=== PATIENT | female | born 1950 | race Caucasian/White ===

== ENCOUNTER 2024-02-23 14:45 | Outpatient (CLI) | payer MEDICARE, SELFPAY ==
--- NOTE | ~2024-02-23 | MR_ITS ---
MRI of the left shoulder Technique: Axial proton-density fat-sat images, coronal proton density fat-sat and T2 fat-sat images, and sagittal T1-weighted and T2 fat-sat images were acquired. Clinical History: Pain Findings: There is cvsd-df-[id number] AC joint degenerative change. Small subacromial spur present. Cor acoclavicular, coracoacromial, and coracohumeral ligaments are intact. Supraspinatus and infraspinatus tendons are intact, without partial or full-thickness tear. There is mild tendinosis. Subscapularis tendon is intact, with minimal tendinosis. Tendon of the long head of the biceps is intact. No labral tear evident. There is thickening and increased signal of the inferior glenohumeral ligament. No effusion or degene rative change of the glenohumeral joint. No fluid distention of the subacromial/subdeltoid bursa. No muscle atrophy or edema. Impression: Thickening and increased signal of the inferior glenohumeral ligament suggests adhesive capsulitis. Mild rotator cuff tendinosis. Meuv-tc-iyjhewhj AC joint degenerative change. Reviewed, dictated and finalized at [facility]. Impression: Thickening and increased signal of the inferior glenohumeral ligament suggests adhesive capsulitis. Mild rotator cuff tendinosis. Bspo-sg-kxnxtiqu AC joint degenerative change.
== END 2024-02-23 14:46 ==
LOC: GOSHIMG 14:47
PROVIDERS: PCP Family Medicine; Visit Provider Family Medicine
DX: M25.812 Other specified joint disorders, left shoulder (principal); M75.32 Calcific tendinitis of left shoulder; M19.012 Primary osteoarthritis, left shoulder
CPT/HCPCS: 73221

== ENCOUNTER 2025-06-25 14:06 | Observation (INO) | payer MEDICARE, SELFPAY ==
--- OUTSIDE RECORDS SUMMARY | 2008-12-19 10:30 | XMS_ITS | Continuity of Care Document ---
Author Organization [facility] Address [address] [place] [address] [facility] [address] [place] [address] Phone Care Team Providers Care Building Operator Name Role Phone Bryan Aguilera Unavailable Unavailable Procedures Procedure Date Office/outpatient Visit, [facility] Advance Directives Directive Yes / No Effective Date File Name No Information Encounters Encounter Description Practice Location Reason(s) For Visit Diagnoses Date Provider Providers Copied on Encounter Office/outpat ient Visit, [facility], [address], [place], [place], [id number], [place] tel:[phone] [facility] No Information 4-200 9 Faisaljesika Bryan. [address] [facility] [address], [place], [address], [place]. tel:[phone] Referring Provider: Ivan Jay, [address] [facility], [place], [place], [facility]. tel:[phone] Family History Family Member Type Diagnosis Age At Onset No Information Payers Payer name Insurance type Covered republican ID Authoriza tion(s) No Information Social History Type Description Quantity Date Captured Comments Sex Female Smoking Status No Information Chief Complaint And Reason For Visit No Information Reason For Referral Reason For Referral No Information History Of Present Illness Encounter Date Complaint History Of Prese nt Illness No Information Functional Status Date Functional Assessmen t No Information Instructions Date Instruction Additional Infor mation No Information Assessments Type Assessment Date No Information Patient Care Teams Name Effective Dates (start - stop) Status Members No Information
--- OUTSIDE RECORDS SUMMARY | 2008-12-19 10:30 | XMS_ITS | Continuity of Care Document ---
Author Organization [facility] Address [address] [place] [address] [facility] [address] [place] [address] Phone Care Team Providers Care Metal Gauge Maker Name Role Phone Bryan Aguilera Unavailable Unavailable Procedures Procedure Date Office/outpatient Visit, [facility] Advance Directives Directive Yes / No Effective Date File Name No Information Encounters Encounter Description Practice Location Reason(s) For Visit Diagnoses Date Provider Providers Copied on Encounter Office/outpat ient Visit, [facility], [address], [place], [place], [id number], [place] tel:[phone] [address] [facility] No Information 4-200 9 Faisaljesika Bryan. [address] [facility] [address], [place], [address], [place]. tel:[phone] Referring Provider: Ivan Jay, [address] [facility], [place], [place], [facility]. tel:[phone] Family History Family Member Type Diagnosis Age At Onset No Information Payers Payer name Insurance type Covered libertarian ID Authoriza tion(s) No Information Social History [...]
--- OUTSIDE RECORDS SUMMARY | 2024-04-20 10:30 | XMS_ITS | Continuity of Care Document ---
Author Organization [facility] Address [address] [facility] [address] [place] [address] Phone Care Team Providers Care Model Maker Name Role Phone Ronan Hastings Unavailable Unavailable Procedures Procedure Date Therapeutic Activities Neuromuscular Re-Ed Therapeutic Exercise Hot or Cold Pack Therapeutic Activities Neuromuscular Re-Ed Therapeutic Exercise Hot or Cold Pack Therapeutic Activities Neuromuscular Re-Ed Therapeutic Exercise Hot or Cold Pack Therapeutic Activities Therapeutic Exercise Hot or Cold Pack Therapeutic Activities Neuromuscular Re-Ed Therapeutic Exercise Hot or Cold Pack Therapeutic Activities Neuromuscular Re-Ed Therapeutic Exercise Hot or Cold Pack Therapeutic Activities Neuromuscular Re-Ed Therapeutic Exercise Hot or Cold Pack Doc neg elder mal no plan PRES/ABSN URINE INCON ASSESS Identified as unhealthy alcohol user Mar Identified as unhealthy alcohol user rcv d counseling Unhealthy alcohol via screening rcvd cou nseling OT Evaluation Low Complexity Therapeutic Activities Therapeutic Exercise Hot or Cold Pack Therapeutic Activities Neuromuscular Re-Ed Therapeutic Exercise Manual Therapy Hot or Cold Pack Therapeutic Activities Neuromuscular Re-Ed Manual Therapy Hot or Cold Pack Therapeutic Activities Neuromuscular Re-Ed Manual Therapy Hot or Cold Pack Therapeutic Activities Neuromuscular Re-Ed Manual Therapy Hot or Cold Pack Therapeutic Activities Neuromuscular Re-Ed Manual Therapy Hot or Cold Pack Therapeutic Activities Neuromuscular Re-Ed Manual Therapy Hot or Cold Pack Therapeutic Activities Neuromuscular Re-Ed Therapeutic Exercise Manual Therapy Hot or Cold Pack Therapeutic Activities Neuromuscular Re-Ed Therapeutic Exercise Manual Therapy Hot or Cold Pack Doc neg elder mal no plan OT Evaluation Low Complexity Therapeutic Activities Therapeutic Exercise Hot or Cold Pack Advance Directives Directive Yes / No Effective Date File Name No Information Encounters Encounter Description Practice Location Reason(s) For Visit Diagnoses Date Provider Providers Copied on [facility], [address], [id number], tel:[phone] [place] No Information Rosendo Ferraro. . Referring Provider: Ramiro Bearden, [address] [place], [address]. tel:[phone] [facility], [address] [facility] [address], [place], [id number], [place] tel:[phone] [place] No Information 2 2 4 Rosendo Castanedayne. . Referring Provider: Ramiro Bearden, [address] [facility], [place], [address]. tel:[phone] [facility], [address] [address], [place], [place], [address], [place] tel:[phone] [place] No Information 4 Rosendo Ronan. . Referring Provider: Ramiro Bearden, [address] [facility], [place], [address]. tel:[phone] [facility], [address] [address], [place], [place], [address], [place] tel:[phone] [place] No Information 4 Rosendo Ronan. . Referring Provider: Ramiro Bearden, [address] [place], [address]. tel:[phone] [facility], [address], [id number], [place] tel:[phone] [place] No Information 0- 4 Rosendo Ronan. . Referring Provider: Ramiro Bearden, [address] [place], [address]. tel:[phone] [facility], [id number], [place] tel:[phone] [place] No Information 0 8- 4 Rosendo Ronan. . Referring Provider: Ramiro Bearden, [place], [address]. tel:[phone] [facility], [address] [facility] [address], [place], [place], [id number], [place] tel:[phone] [place] No Information 0 5- 4 Rosendo Castanedayne. . Referring Provider: Ramiroysabel Arthur Suleiman, [address] [facility], [place], [address]. tel:[phone] [facility] [address] [facility] [facility] [address], [place], [place], [id number], tel:[phone] [place] No Information 0 4 Rosendo Castanedayne. . Referring Provider: Ramiro Riverarekha Bearden, [address] [facility], [place], [address]. tel:[phone] [facility] [address] [facility] [facility] [address], [place], [place], [id number], [place] tel:[phone] [place] No Information 1 2 Rosendo Castanedayne. . Referring Provider: Veronica Almendarez [address] [place], [place] [address], [place], [address]. tel:[phone] [address], [place], [place], [address], [place] tel:[phone] [place] No Information 0 2 Rosendo Castanedayne. . Referring Provider: Jules Palomo[address] [place], [place] [address], [place], [address]. tel:[phone] [facility] [address] [place], [place] [address], [place], [place], [address], [place] tel:[phone] [place] No Information 0 2 Rosendo Castanedayne. . Referring Provider: Katt Palomo [address], [place], [address]. tel:[phone] [facility] [address] [place], [place] [address], [place], [place], [address], [place] tel:[phone] [place] No Information 2 2 Rosendo Castanedayne. . Referring Provider: Katt Palomo [address], [place], [address]. tel:[phone] [facility] [address] [facility] [address], [place], [place], [address], tel:[phone] [place] No Information 2 Rosendo Ronan. . Referring Provider: Veronica Almendarez [address], [place], [address]. tel:[phone], [place], [place], [address], tel:[phone] [place] No Information 2 Rosendo Ronan. . Referring Provider: Veronica Almendarez [address], [place], [address]. tel:[phone] [address], [place], [place], [address], tel:[phone] [place] No Information 2 Rosendo Ronan. . Referring Provider: Veronica Almendarez [address], [place], [address]. tel:[phone] [address], [place], [place], [id number], tel:[phone] [place] No Information 2 Rosendo Ronan. . Referring Provider: Veronica Almendarez [address], [place], [address]. tel:[phone] [address], [place], [place], [address], tel:[phone] [place] No Information 2 Rosendo Ronan. . Referring Provider: Veronica Almendarez [address], [place], [address]. tel:[phone] Family History Family Member Type Diagnosis Age At Onset No Information Payers Payer name Insurance type Covered alliance party ID Authoriza tion(s) Aetna Medicare Replacement CI [id number] Social History Type Description Quantity Date Captured Comments Sex Female Smoking Status No Information Chief Complaint And Reason For Visit No Information Reason For Referral Reason For Referral No Information History Of Present Illness Encounter Date Complaint History Of Prese nt Illness No Information Functional Status Date Functional Assessmen t No Information Instructions Date Instruction Additional Infor mation Prescribed activity/exercise edu cation Related to Overweight Dietary needs education Related to Overweight Assessments Type Assessment Date No Information Patient Care Teams Name Effective Dates (start - stop) Status Members No Information
--- OUTSIDE RECORDS SUMMARY | 2024-04-20 10:30 | XMS_ITS | Continuity of Care Document ---
Author Organization [facility] Address [address] [facility] [address] [place] [address] Phone Care Team Providers Care Cold Storage Superintendent Name Role Phone Ronan Hastings Unavailable Unavailable Procedures Procedure Date Therapeutic Activities Therapeutic Exercise Neuromuscular Re-Ed Hot or Cold Pack Therapeutic Activities Neuromuscular [...] nseling OT Evaluation Low Complexity Therapeutic Activities Hot or Cold Pack Therapeutic Exercise Therapeutic Activities Therapeutic Exercise Neuromuscular Re-Ed Hot or Cold Pack Manual Therapy Therapeutic Activities Hot or Cold Pack Manual Therapy Neuromuscular Re-Ed Therapeutic Activities Neuromuscular Re-Ed Manual Therapy Hot or Cold Pack Manual Therapy Neuromuscular Re-Ed Therapeutic Activities Hot or Cold Pack Therapeutic Activities Neuromuscular Re-Ed Manual Therapy Hot or Cold Pack Therapeutic Activities Hot or Cold Pack Manual Therapy Neuromuscular Re-Ed Therapeutic Activities Manual Therapy Therapeutic Exercise Neuromuscular Re-Ed Hot or Cold Pack Therapeutic Activities Neuromuscular Re-Ed Therapeutic Exercise Manual Therapy Hot or Cold Pack Doc neg elder mal no plan OT Evaluation Low Complexity Hot or Cold Pack Therapeutic Exercise Therapeutic Activities Advance Directives Directive Yes / No Effective Date File Name No Information Encounters Encounter Description Practice Location Reason(s) For Visit Diagnoses Date Provider Providers Copied on [facility]counter [facility], [address], [id number], tel:[phone] [place] No Information Rosendo Ferraro. . Referring Provider: Ramiro Bearden, [address] [place], [address]. tel:[phone] [facility], [address] [facility] [address], [place], [address], [place] tel:[phone] [place] No Information 2 2 4 Rosendo Castanedayne. . Referring Provider: Ramiro Bearden, [address] [facility], [place], [address]. tel:[phone] [facility], [address] [address], [place], [place], [address], [place] tel:[phone] [place] No Information 4 Rosendo Ronan. . Referring Provider: Ramiro Bearden, [address] [facility], [place], [address]. tel:[phone] [facility], [address] [address], [place], [place], [address], [place] tel:[phone] [place] No Information 4 Rosendo Ronan. . Referring Provider: Ramiro Bearden, [address] [place], [address]. tel:[phone] [facility], [address], [id number], [place] tel:[phone] [place] No Information 0- 4 Rosendo Ronan. . Referring Provider: Ramiro Bearden, [address] [place], [address]. tel:[phone] [facility], [id number], [place] tel:[phone] [place] No Information 0 8- 4 Rosendo Ronan. . Referring Provider: Ramiro Bearden, [facility] [place], [address]. tel:[phone] [facility], [address] [facility] [address], [place], [place], [address], [place] tel:[phone] [place] No Information 0 5- 4 Rosendo Castanedayne. . Referring Provider: Raimroysabel Arthur Suleiman, [address] [facility], [place], [address]. tel:[phone] [facility] [address] [facility] [address], [place], [place], [address], tel:[phone] [place] No Information 0 4 Rosendo Castanedayne. . Referring Provider: Ramiro Riverarekha Bearden, [address] [facility], [place], [address]. tel:[phone] [facility] [address] [facility] [address], [place], [place], [address], [place] tel:[phone] [place] No Information 1 2 Rosendo Castanedayne. . Referring Provider: Veronica Almendarez [address] [place], [place] [address], [place], [address]. tel:[phone] [address], [place], [place], [address], [place] tel:[phone] [place] No Information 0 2 Rosendo Castanedayne. . Referring Provider: Jules Palomo[address] [place], [place] [address], [place], [address]. tel:[phone] [facility] [address] [place], [place] [address], [place], [place], [address], [place] tel:[phone] [place] No Information 0 2 Rosendo Castanedayne. . Referring Provider: Katt Palomo [address], [place], [address]. tel:[phone] [facility] [address] [place], [place] [address], [place], [place], [address], [place] tel:[phone] [place] No Information 2 2 Rosendo Castanedayne. . Referring Provider: Katt Palomo [address], [place], [address]. tel:[phone] [facility] [address] [facility] [address], [place], [place], [address], tel:[phone] [place] No Information 2 Rosendo Ronan. . Referring Provider: Veronica Almendarez [address], [place], [address]. tel:[phone], [place], [place], [address], tel:[phone] [place] No Information 2 Rosendo Ronan. . Referring Provider: Veronica Almendarez [address], [place], [address]. tel:[phone] [address], [place], [place], [address], tel:[phone] [place] No Information 2 Rosendo Ronan. . Referring Provider: Veronica Almendarez [address], [place], [address]. tel:[phone], [place], [place], [address], tel:[phone] [place] No Information 2 Rosendo Ronan. . Referring Provider: Veronica Almendarez [address], [place], [address]. tel:[phone] [address], [place], [place], [address], tel:[phone] [place] No Information 2 Rosendo Ronan. . Referring Provider: Veronica Almendarez [address], [place], [address]. tel:[phone] Family History Family Member Type Diagnosis Age At Onset No Information Payers Payer name Insurance type Covered libertarian ID Authoriza tion(s) Aetna Medicare Replacement CI [id number] Social History Type Description Quantity Date Captured [...]
[2025-06-25] VITALS (10 sets, daily range): BP systolic 117–195; BP diastolic 74–102; PULSE 57–89; RESP 13–24; TEMP 36.6–36.8; O2SAT 91–98; BMI 40.6
--- NOTE | ~2025-06-25 | XR_ITS ---
EXAMINATION: XR chest 2V, 06/25/2025 14:49 CDT HISTORY: cp COMPARISON: No comparisons available. Technique: 2 views obtained. Findings: The lungs are clear, no effusion. No pneumothorax. Heart is normal size. Mediastinal and hilar contours are within normal limits. Bony thorax no acute abnormality. Impression: No acute cardiopulmonary abnormality. Reviewed, dictated and finalized at location P. Impression: No acute cardiopulmonary abnormality.
--- NOTE | ~2025-06-25 | NM_ITS ---
EXAMINATION: NM jean-paul stress w perfusion DATE: 06/26/2025 12:41 INDICATION: Chest pain TECHNIQUE: Rest images were obtained following intravenous administration of 10.0 mCi Tc99m tetrofosmin (Myoview). The patient was infused intravenously with Lexiscan (Regadenoson). Then, 32.0 mCi Tc99m tetrofosmin (Myoview) was administered intravenously, and stress images were obtained. Data was cortez nstructed into short axis and horizontal and vertical long axis SPECT images. Gated SPECT images were also obtained. COMPARISON: None. FINDINGS: There is no definite reversible or fixed perfusion abnormality to suggest ischemia or infarction. There is normal left ventricular chamber size, wall motion and ejection fraction. Left ventricular ejection fraction measures >70%. IMPRESSION: 1. Normal myocardial perfusion at rest and during stress. 2. Left ventricular ejection fraction measuring >70%. Reviewed, dictated and finalized at location A.
--- OUTSIDE RECORDS SUMMARY | 2025-06-25 14:07 | XMS_ITS | Clinical Summary ---
Author Organization [facility] Address [address] [place] [address] Care Team Providers Care Mechanical Cad Designer Name Role Phone Ramiro Arthur MD Primary Care Provider [phone] Dinesh Vargas MD Unavailable [phone] Shiv Stovall MD Unavailable [phone] Allergies No known active allergies Medications estradioL (ESTRACE) 0.01 % (0.1 mg/gram) vaginal cream Insert into the vagina nightly Active folic acid (FOLVITE) 800 mcg tablet Take by mouth Active loratadine (CLARITIN ORAL) 03/28/20 23 Active cholecalciferol, vitD3,/vit K2 (vitamin D3-vitamin K2) 125 mcg (5,000 unit)-100 mcg capsule 02/27/20 19 Active multivit with calcium,iron,min (WOMEN'S DAILY MULTIVITAMIN ORAL) 05/29/20 04 Active lisinopril-hydroCH LOROthiazide (ZESTORETIC) 20-12.5 mg per tablet TAKE 1 TABLET BY MOUTH EVERY DAY 90 tablet 3 09/02/20 24 Active escitalopram (LEXAPRO) 10 mg tablet TAKE 1 TABLET BY MOUTH EVERY DAY 90 tablet 1 10/28/19 25 Active vit C/Zn gluc/herbal no.325 (ELDERBERRY ZINC VIT C MM) Apply to mouth Activ e iron, carbonyl (FEOSOL) 45 mg tabletIndications: Iron Deficiency Anemia 0.283 tablets (45 mg total) Active ondansetron ODT (ZOFRAN-ODT) 4 mg disintegrating tabletIndications: Epigastric abdominal pain Take 1 tablet (4 mg total) by mouth every 8 (eight) hours as needed for nausea or vomiting 20 tablet 1 04/19/20 Active Additional Information Patient not taking.Reported on 05/22/[address] (PROTONIX) 40 mg EC tabletIndications: Epigastric abdominal pain Take 1 tablet (40 mg total) by mouth daily 30 tablet 3 05/22/20 Active Active Problems Problem Noted Date Diagnosed Date Mixed hyperlipidemia 02/22/2025 Encounter for Medicare annual wellness exam 07/30 Assessment & Plan (08/22/2024 8:53 AM SENIOR ACCOUNT EXECUTIVE): A(n) yearly Medicare Annual Wellness Visit has been performed today. Kiara Cintron is not up to date on screening tests. She is in need of Hepatitis B. She is not up to date on needed preventative vaccinations; She is in need of Influenza. We discussed healthy lifestyle habits, educational material has been given. Medications reviewed, changes documented as per the medical record and discussed with patient along with risks vs benefits. Specific topics reviewed: drugs, ETOH, and tobacco, importance of regular dental care, importance of regular exercise, importance of varied diet, limit TV, media violence, minimize junk food, and seat belts. Return in 6 months Hypertension, essential 10/13/2023 Overview (10/13/2023): Continuing lisinopril-hct BP is improved by our reading, but some higher readings noted at home Please get back on DASH plan Encounter for medical examination to establish c are 09/15/2023 Assessment & Plan (09/15/2023 2:48 PM SENIOR ACCOUNT EXECUTIVE): A(n) initial well visit to establish care has been performed today. Kiara Cintron is not up to date on screening tests. She is in need of DEXA, Breast cancer screening, hepatitis C screening, and Colon cancer screening- had colonoscopy last November, bone density was done a couple years ago. She is not up to date on needed preventative vaccinations; She is in need of Influenza. We discussed healthy lifestyle habits, educational material has been given. Medications reviewed, changes documented as per the medical record and discussed with patient along with risks vs benefits. Return in 1 month Class 3 severe obesity due t o excess calories without serious comorbidity with body mass index (BMI) of 40.0 to 44.9 in adult 09/15/2023 Assessment & Plan (02/15/2024 1:49 PM CDT): BMI Follow-up includes: nutrition counseling, exercise counseling, and education provided. Assessment & Plan (09/19/2023 2:37 PM SENIOR ACCOUNT EXECUTIVE): BMI Follow-up includes: nutrition counseling, exercise counseling, and education provided. Body mass index 40.0-44.9, adult ([facility]) 09/15 NURIA (obstructive sleep apnea) 12/26/2022 Seasonal allergies 12/25/2021 Vitamin D deficiency 12/25/2021 Recurrent major depressive episodes, in full rem ission 10/15/2016 IBS (irritable bowel syndrome) 02/10/2014 Depression 04/29/2011 Labile diastolic hypertension 04/29/2011 Encounters Date Type Department Care Team Description 05/31/2025 2:20 PM CDT - 05/31/2025 11:59 PM CDT Hospital Encounter [address] [address] Epigastric abdominal pain Discharge Disposition: Discharge to home or self care 05/25/2025 Results Follow-Up [facility] Primary Care at [address] [phone] Ramiro Arthur MD Thyroid Function [place], Comprehensive metabolic panel, CBC with auto differential, Additional followed-up results: 4 05/24/2025 1:40 PM CDT Lab [address] [address] Screening for thyroid disorder; Epigastric abdominal pain; Polyuria; Polydipsia; IFG (impaired fasting glucose) 05/22/2025 1:45 PM CDT Office Visit [facility] at [address] [phone] Ramiro Arthur MD Polyuria (Primary Dx); Epigastric abdominal pain; Polydipsia; Screening for thyroid disorder; IFG (impaired fasting glucose); Irritable bowel syndrome, unspecified type 05/19/2025 Telephone [facility] Primary Care at [address] [phone] Ramiro Arthur MD Appointment Request 05/19/2025 Results Follow-Up [facility] at [address] [phone] Jennifer Case NP Urine culture Urine, clean voided 05/17/2025 6:15 PM CDT Office Visit [facility] at [address] [phone] Chaya Mckeon NP Acute cystitis with hematuria (Primary Dx); Hematuria, unspecified type 05/17/2025 5:26 PM CDT - 05/17/2025 11:59 PM CDT Hospital Encounter [address] [address] Acute cystitis with hematuria Discharge Disposition: Discharge to home or self care 05/02/2025 5:30 PM CDT Office Visit [facility] at [address] [phone] Danielito Hu NP Insect bite of left forearm, initial encounter (Primary Dx); Insect bite of right lower extremity, initial encounter 04/24/2025 Results Follow-Up [facility] at [address] [phone] Ramiro Arthur MD Hepatic function panel, Amylase 04/19/2025 8:24 PM CDT - 04/19/2025 11:59 PM CDT Hospital Encounter [address] [address] Epigastric abdominal pain Discharge Disposition: Discharge to home or self care 04/19/2025 2:15 PM CDT Lab [facility] at [address] [phone] 04/19/2025 10:45 AM CDT Office Visit [facility] at [address] [phone] Ramiro Arthur MD Epigastric abdominal pain (Primary Dx) 04/14/2025 Results Follow-Up [facility] ([facility]) [address] [place] [phone] Marie Rodriguez RN Surgical pathology 04/12/2025 10:52 AM CDT - 04/12/2025 11:59 PM CDT Hospital Encounter [facility] ([facility]) [address] [place] [phone] Abnormal mammogram Discharge Disposition: Discharge to home or self care 04/12/2025 10:03 AM CDT - 04/12/2025 11:59 PM CDT Hospital Encounter [facility] ([facility]) [address] [place] [phone] Abnormal mammogram Discharge Disposition: Discharge to home or self care 04/06/2025 Results Follow-Up [facility] Primary Care at [address] [phone] Ramiro Arthur MD Breast Left Limited 03/29/2025 1:09 PM CDT - 03/29/2025 11:59 PM CDT Hospital Encounter [facility] ([facility]) [address] [place] [phone] Abnormal screening mammogram Discharge Disposition: Discharge to home or self care 03/29/2025 1:07 PM CDT - 03/29/2025 11:59 PM CDT Hospital Encounter [facility] ([facility]) [address] [place] [phone] Abnormal screening mammogram Discharge Disposition: Discharge to home or self care 03/27/2025 Orders Only [facility] Primary Care at [address] [phone] Ramiro Arthur MD from Last 3 Months Immunizations Immunization Administration Dates Next Due DTaP 12/31/2010 Influenza, Quad, Adjuvantate d, Intramuscular 07/31/2022,07/28/2021,07/12/2020 Influenza, Quadrivalent, Hig h Dose, Preservative Free, Intrr 09/15/2023,07/28/2021,08/10/2019 Influenza, Quadrivalent, Spl it, Preservative Free, Intramuscular 10/08/2016,10/01/2015 Influenza, Trivalent, Adjuva nted, Intramuscular 07/12/2020 Influenza, Trivalent, High D ose, Split, Preservative Free, Intramuscular 08/30/2024,08/10/2019 Influenza, Unspecified 09/28/2022(Deferr ed: Patient Refused),08/10/2019 Moderna SARS-CoV-2 Monovalen t Vaccination (12+ YRS) 11/30/2020,11/02/2020 Pneumococcal Conjugate PCV 13 10/08/2017 Pneumococcal Conjugate Pcv20 12/25/2021 Pneumococcal Polysaccharide PPV23 03/13/2015 Sars-cov-2 Covid-19 Mrna, Bi valent, Original/omicron Ba.1 08/30/2024 Td, Not Adsorbed 10/29/2012 ZOSTER Recombinant 12/20/2021,09/04/2021 Surgical History Surgery Date Site/Laterality Comments KNEE CARTILAGE SURGERY 09/28/2004 - 09/27/2005 Left CHOLECYSTECTOMY 09/28/2011 - 09/27/2012 BREAST BIOPSY 04/12/2025 Left Medical History Medical History Date Comments Hypertension Family History Medical History Relation Name Comments Heart disease Father Colon cancer Maternal Grandfather Heart disease Mother Breast cancer Sister Diabetes Sister Relation Name Status Comments Father Maternal Grandfather Mother Sister Social History Tobacco Use Types Packs/Day Years Used Date Smoking Tobacco: Never Smokeless Tobacco: Never Tobacco Cessation:Counseling Given: Not Answered AUDIT-C Answer Date Recorded Q1: How often do you have a drink containing alcohol? 4 or more times a week 09/15/2023 Q2: How many drinks containi ng alcohol do you have on a typical day when you are drinking? 1 or 2 Q3: How often do you have si x or more drinks on one occasion? Never 09/15/2023 PHQ-2 Answer Date Recorded PHQ-2 Total Score (If total score is 3 or more points, staff should administer the PHQ-9) 0 04/19/2025 Comments Unknown Sex and Gender Information Value Date Recorded Sex Assigned at Not on file Legal Sex Female 6:28 AM SENIOR ACCOUNT EXECUTIVE Gender Identity Not on file Sexual Orientation Not on file Obstetrics History Para Term AB IAB SAB Ectopic Multiple Livin g Live Births 3 2 2 Date Outcome GA Total Labor Labor/2nd/3rd Weight Sex Type Anes PTL Danyell A1 A5 Name Clin Term Term Last Filed Vital Signs Vital Sign Reading Time Taken Comments Blood Pressure 134/70 05/22/2025 1:45 PM CDT Pulse 69 05/22/2025 1:45 PM CDT Temperature 36.1 C (96.9 F) 05/22/2025 1:45 PM CDT Respiratory Rate 18 05/22/2025 1:45 PM CDT Oxygen Saturation 98% 05/22/2025 1:45 PM CDT Inhaled Oxygen Concentration - - Weight 107.5 kg (237 lb) 05/22/2025 1:45 PM CDT Height 160 cm (5' 3) 05/22/2025 1:45 PM CDT Body Mass Index 41.98 05/22/2025 1:45 PM CDT Plan of Treatment Health Maintenance Due Date Last Done Comments Covid-19 Vaccine ( season) 2025 08/30/2024, 04/19/2023, 07/31/2022, Additional history exists Influenza Vaccine (#1) 2025 , 09/15/2023, 07/31/2022, Additional history exists Well Visit 65+ 08/22/2025 08/22/2024, 08/17/2023 Osteoporosis Screening-Bone Density Scan 01/27/2026 01/28/2024 Breast Cancer Screening-Mammogram 03/22/2026 03/22/2025, 10/28/2023, 09/03/2022, Additional history exists Depression Screening 04/19/2026 04/19/2025, 02/22/2025, 08/22/2024, Additional history exists Fall Risk Assessment 04/19/2026 04/19/2025, 08/22/2024, 09/15/2023 DTaP/Tdap/Td Vaccine (3 - Tdap) 09/27/2026 10/29/2012, 12/31/2010 Postponed from 10/29/2022 (Insurance / Financial) Colon Cancer Screening-Colonoscopy 03/05/2032 03/05/2022 Zoster Vaccine Completed 12/20/2021, 09/04/2021 Pneumococcal vaccine 65+ Completed 022, 10/08/2017, 03/13/2015 Hepatitis C Screening Completed 09/15/2023 Hepatitis B Screening Completed 02/22/2025 Medical Devices Implanted Type Area Cutter Tender Device Identifier Shelf Expiration Date Model / Serial / Lot [employer] Ultraclip Bard 17ga 10cm 2 Trigger Permanent Ultrasound [id number] - [id number] Implanted:Qty: 1 on 04/12/2025 at [facility] [employer] [id number] / / Procedures Procedure Name Priority Date/Time Associated Diagnosis Comments CT ABDOMEN PELVIS WO CONTRAST Routine 05/31/2025 2:34 PM CDT Epigastric abdominal pain EGFR Routine 05/24/2025 1:46 PM CDT Epigastric abdominal pain Polyuria Polydipsia DIFFERENTIAL AUTO Routine 05/24/2025 1:4 6 PM CDT Epigastric abdominal pain HEMOGLOBIN A1C Routine 05/24/2025 1:46 PM CDT Polyuria Polydipsia IFG (impaired fasting glucose) CBC WITH AUTO DIFFERENTIAL Routine 05/24/2025 1:46 PM CDT Epigastric abdominal pain COMPREHENSIVE METABOLIC PANEL Routine 05/24/2025 1:46 PM CDT Epigastric abdominal pain Polyuria Polydipsia THYROID FUNCTION CASCADE Routine 05/24/2025 1:46 PM CDT Screening for thyroid disorder POCT URINALYSIS DIPSTICK Routine 05/22/2025 2:45 PM CDT Epigastric abdominal pain Polyuria Polydipsia POCT URINALYSIS DIPSTICK Routine 05/17/2025 5:26 PM CDT Acute cystitis with hematuria URINE CULTURE Routine 05/17/2025 5:26 PM CDT Acute cystitis with hematuria AMYLASE Routine 04/19/2025 12:00 PM CDT Epigastric abdominal pain HEPATIC FUNCTION PANEL Routine 04/19/2025 12:00 PM CDT Epigastric abdominal pain SRINIVAS POST CLIP PLACEMENT LEFT Schedule Routine, Read Routine (OP Routine) 04/12/2025 11:17 AM CDT Abnormal mammogram US GUIDED BREAST BIOPSY LEFT Schedule Routine, Read Routine (OP Routine) 04/12/2025 11:15 AM CDT Abnormal mammogram SURGICAL PATHOLOGY Routine 04/12/2025 10 :42 AM CDT Abnormal mammogram US BREAST LEFT LIMITED Schedule Routine, Read Routine (OP Routine) 03/29/2025 2:00 PM CDT Abnormal screening mammogram DIAGNOSTIC MAMMOGRAM LEFT W SRINIVAS Schedule Routine, Read Routine (OP Routine) 03/29/2025 1:49 PM CDT Abnormal screening mammogram SCREENING MAMMOGRAM BILATERAL W SRINIVAS Schedule Routine, Read Routine (OP Routine) 03/22/2025 9:54 AM CDT Breast cancer screening by mammogram DEXA AXIAL SKELETON BONE DENSITY 1 OR MORE SITES Schedule Routine, Read Routine (OP Routine) 01/28/2024 1:52 PM CDT Asymptomatic menopausal state Screening for osteoporosis HEPATITIS C ANTIBODY Routine 09/15/2023 1:13 PM SENIOR ACCOUNT EXECUTIVE Need for hepatitis C screening test from Last 3 Months or Most Recently Relevant to Health Maintenance Results * CT Abdomen Pelvis WO Contrast (05/31/2025 2:34 PM CDT) Anatomical Region Laterality Modality Body N/A Computed Tomogra phy 06/06/2025 2:48 PM CDT Narrative 06/06/2025 2:55 PM CDT EXAM DESCRIPTION: CT ABDOMEN PELVIS WO CONTRAST REASON FOR STUDY: chronic bloating, epigastric pain, Epigastric abdominal pain,mid abd,x 2mo TECHNIQUE: CT scan of the abdomen and pelvis performed without intravenous and without oral contrast using helical scanning technique. Reconstructed coronal and sagittal MPR images reviewed. All images stored on PACS. Automated exposure control was used as a dose optimization technique for this examination. COMPARISON: None. FINDINGS: The sensitivity for detection of visceral lesions is diminished without the use of intravenous contrast. LOWER CHEST: There is atelectasis in the right middle lobe and lingula. Minimal ground-glass density in the bases. No pleural effusion. LIVER: Liver size and contour normal. No focal hepatic lesion. GALLBLADDER: Not seen. BILE DUCTS: No biliary ductal dilation. SPLEEN: Spleen size normal. No focal splenic lesion. PANCREAS: No pancreatic mass or inflammatory change. ADRENALS: Normal KIDNEYS/URINARY TRACT: No right renal calculus. No left renal calculus. There is no hydronephrosis or hydroureter. Urinary bladder unremarkable. GI: No bowel obstruction. Minimal colonic diverticulosis. No evidence of acute diverticulitis. The terminal ileum and the appendix are normal. Stomach and duodenal are normal. There is a tiny sliding hiatal hernia. No pneumatosis. PERITONEUM: Small fat containing umbilical hernia. No ascites or free air. No mesenteric mass or lymphadenopathy. RETROPERITONEUM: No retroperitoneal mass or lymphadenopathy. REPRODUCTIVE: No significant abnormalities are seen. VASCULATURE: Abdominal aorta nonaneurysmal. MUSCULOSKELETAL: Bone windows demonstrate no acute or aggressive osseous abnormality. Vacuum disc phenomena L3-4 and L4-5 as well as L5-S1. Disc space narrowing at L3-4, L4-5 and L5-S1. OTHER: No other abnormality. IMPRESSION: 1. No evidence of an acute abnormality of the abdomen and pelvis. 2. Tiny sliding hiatal hernia. 3. Cholecystectomy. 4. Minimal colonic diverticulosis. THIS IS AN ELECTRONICALLY VERIFIED FINAL REPORT 06/06/2025 2:55 PM - Electronically signed by Constantine Lawson M.D. T: Report ID: [id number] Reading Location: [id number] Procedure Note Constantine Lawson MD - 06/06/2025 EXAM DESCRIPTION: CT ABDOMEN PELVIS WO CONTRAST REASON FOR STUDY: chronic bloating, epigastric pain, Epigastric abdominal pain,mid abd,x 2mo TECHNIQUE: CT scan of the abdomen and pelvis performed without intravenousand without oral contrast using helical scanning technique. Reconstructed coronal and sagittal MPR images reviewed. All images stored on PACS.Automated exposure control was used as a dose optimization technique for this examination. COMPARISON: None. FINDINGS: The sensitivity for detection of visceral lesions is diminished without the use of intravenous contrast. LOWER CHEST: There is atelectasis in the right middle lobe and lingula. Minimal ground-glass density in the bases. No pleural effusion. LIVER: Liver size and contour normal. No focal hepatic lesion. GALLBLADDER: Not seen. BILE DUCTS: No biliary ductal dilation. SPLEEN: Spleen size normal. No focal splenic lesion. PANCREAS: No pancreatic mass or inflammatory change. ADRENALS: Normal KIDNEYS/URINARY TRACT: No right renal calculus. No left renal calculus. There is no hydronephrosis or hydroureter. Urinary bladder unremarkable. GI: No bowel obstruction. Minimal colonic diverticulosis. No evidenceof acute diverticulitis. The terminal ileum and the appendix are normal. Stomach and duodenal are normal. There is a tiny sliding hiatal hernia.No pneumatosis. PERITONEUM: Small fat containing umbilical hernia. No ascites or freeair. No mesenteric mass or lymphadenopathy. RETROPERITONEUM: No retroperitoneal mass or lymphadenopathy. REPRODUCTIVE: No significant abnormalities are seen. VASCULATURE: Abdominal aorta nonaneurysmal. MUSCULOSKELETAL: Bone windows demonstrate no acute or aggressive osseous abnormality. Vacuum disc phenomena L3-4 and L4-5 as well as L5-S1. Disc space narrowing at L3-4, L4-5 and L5-S1. OTHER: No other abnormality. IMPRESSION: 1. No evidence of an acute abnormality of the abdomen and pelvis. 2. Tiny sliding hiatal hernia. 3. Cholecystectomy. 4. Minimal colonic diverticulosis. THIS IS AN ELECTRONICALLY VERIFIED FINAL REPORT 06/06/2025 2:55 PM - Electronically signed by Constantine Lawson M.D. T: Report ID: [id number] Reading Location: [id number] us Ramiro Arthur MD IMG CT PROCEDURES Final Res ult * eGFR (05/24/2025 1:46 PM CDT) Pathologist [facility] eGFR 70 >=60 mL/min/1. 73 m2 Comment: Interpretive Data Reference Interval Normal >/= 90 mL/min/1.73m2 Mildly decreased* 60 - 89 mL/min/1.73m2 Mildly to moderately decreased 45 - 59 mL/min/1.73m2 Moderately to severely decreased 30 - 44 mL/min/1.73m2 Severely decreased 15 - 29 mL/min/1.73m2 Kidney Failure < 15 mL/min/1.73m2 *Relative to young adult level Estimated glomerular filtration rate is determined by the 2020 CKD-EPI equation recommended by the National Kid[employer] (A Unifying Approach to GFR Estimation: Recommendations of the NKF-ASK Task Force on Reassessing the Inclusion of Race in Diagnosing Kidney Disease, JASN 2020). The CKD-EPI equation should not be used for patients with unstable renal function and has not been validated in children and those over 70. Current interpretive data was last reviewed 2021. Blood 05/24/2025 1:46 PM CDT 05/24/2025 6:29 PM CDT Ramiro Arthur MD LAB BLOOD ORDERABLES Final Result [facility] [id number] [facility] Department [place] [address] * Differential, auto (05/24/2025 1:46 PM CDT) Pathologist [facility] Neutrophil abs 4.68 1.50 - 6.50 K/cumm Imm gran abs 0.03 0.00 - 0.10 K/cumm [facility] Lymphocyte abs 2.22 0.80 - 3.30 K/cumm [facility] Monocyte abs 0.43 0.20 - 0.80 K/cumm [facility] Eosinophil abs 0.43 0.00 - 0.50 K/cumm [facility] Basophil abs 0.09 0.00 - 0.10 K/cumm [facility] Neutrophil pct 59.3 % [facility] Comment: Interpretive Data Percent cell count reference ranges are not reported, since discordance with absolute values may lead to misinterpretation of CBC data. Current Interpretive Data was last revised on 2018. Imm gran pct 0.4 % [facility] Comment: Interpretive Data Percent cell count reference ranges are not reported, since discordance with absolute values may lead to misinterpretation of CBC data. Current Interpretive Data was last revised on 2018. Lymphocyte pct 28.2 % [facility] Comment: Interpretive Data Percent cell count reference ranges are not reported, since discordance with absolute values may lead to misinterpretation of CBC data. Current Interpretive Data was last revised on 2018. Monocyte pct 5.5 % [facility] Comment: Interpretive Data Percent cell count reference ranges are not reported, since discordance with absolute values may lead to misinterpretation of CBC data. Current Interpretive Data was last revised on 2018. Eosinophil pct 5.5 % [facility] Comment: Interpretive Data Percent cell count reference ranges are not reported, since discordance with absolute values may lead to misinterpretation of CBC data. Current Interpretive Data was last revised on 2018. Basophil pct 1.1 % [facility] Comment: Interpretive Data Percent cell count reference ranges are not reported, since discordance with absolute values may lead to misinterpretation of CBC data. Current Interpretive Data was last revised on 2018. Blood 05/24/2025 1:46 PM CDT 05/24/2025 6:29 PM CDT us Ramiro Arthur MD LAB BLOOD ORDERABLES Final Result [facility] [id number] [facility] Department [place] [address] * Thyroid Function [place] (05/24/2025 1:46 PM CDT) TSH 1.53 0.30 - 4.20 mcIUnit/mL Blood 05/24/2025 1:46 PM CDT 05/24/2025 6:29 PM CDT us Ramiro Arthur MD LAB BLOOD ORDERABLES Final Result Performing Organization Address City/[facility] Co de Phone Number [facility] [address] [address] * CBC with auto differential (05/24/2025 1:46 PM CDT) WBC 7.88 3.80 - 9.90 K/cumm Hgb 13.8 11.9 - 15.5 g/dL [facility] Hct 41.3 35.6 - 45.5 % [facility] Plt 275 150 - 400 K/cumm [facility] MPV 11.1 9.1 - 12.3 fL [facility] RBC 4.65 3.90 - 5.20 M/cumm [facility] MCV 88.8 81.3 - 96.4 fL [facility] MCH 29.7 27.1 - 33.3 pg [facility] MCHC 33.4 32.3 - 35.7 g/dL [facility] RDW CV 13.2 11.1 - 14.9 % [facility] RDW SD 42.7 35.7 - 48.1 fL [facility] NRBC abs 0.00 0.00 - 0.01 K/cumm [facility] Blood 05/24/2025 1:46 PM CDT 05/24/2025 6:29 PM CDT Ramiro Arthur MD LAB BLOOD ORDERABLES Final Result Performing Organization Address [facility] Co de Phone Number [address] [address] * (ABNORMAL) Hemoglobin A1c (05/24/2025 1:46 PM CDT) Hgb A1C 6.3(H) 4.0 - 5.6 % Estimated Average Glucose 134 mg/dL [facility] Comment: The ADA recommends reporting an estimated Average Glucose (eAG) with all Hemoglobin A1c results using the equation derived from a study of 507 normal and diabetic adults. Minority populations were underrepresented and children were not included. (Diabetes Care 31:9536-2691, 2008). The eAG is not equivalent to a fasting glucose. Blood 05/24/2025 1:46 PM CDT 05/24/2025 6:29 PM CDT Ramiro Arthur MD LAB BLOOD ORDERABLES Final Result Performing Organization Address City/State/ZIP Co vt Phone Number [facility] [address] [facility] Department [place] [address] * (ABNORMAL) Comprehensive metabolic panel (05/24/2025 1:46 PM CDT) Sodium 133(L) 135 - 145 mmol/L Potassium, pl 4.0 3.3 - 4.9 mmol/L [facility] Chloride 96(L) 97 - 110 mmol/L [facility] CO2 27 22 - 32 mmol/L [facility] Anion gap 10 2 - 15 mmol/L [facility] BUN 12 6 - 25 mg/dL [facility] Creatinine 0.87 0.60 - 1.10 mg/dL [facility] Glucose 152 70 - 199 mg/dL [facility] Comment: Interpretive Data Fasting glucose >/= 126 mg/dl is diagnostic for diabetes. Fasting is defined as no caloric intake for at least 8 hours. Fasting glucose between 100 mg/dl to 125 mg/dl is diagnostic of prediabetes. In a patient with classic symptoms of hyperglycemia or hyperglycemic crisis, a random glucose >/= 200 mg/dl is diagnostic for diabetes. In the absence of unequivocal hyperglycemia, results should be confirmed by repeat testing. The classification and Diagnosis of Diabetes Diabetes Care 202; 46: S19-S40. Current interpretive data was last revised 2022. Calcium 9.4 8.5 - 10.3 mg/dL [facility] Bilirubin, total 0.2 0.1 - 1.2 mg/dL [facility] Protein, pl 6.6 6.5 - 8.5 g/dL [facility] Albumin 3.9 3.5 - 5.0 g/dL [facility] Alk phos 49 40 - 130 Units/L [facility] ALT 19 7 - 45 Units/L [facility] AST 22 10 - 45 Units/L [facility] Blood 05/24/2025 1:46 PM CDT 05/24/2025 6:29 PM CDT Result [facility] Ramiro Arthur MD LAB BLOOD ORDERABLES Final Result Performing Organization Address City/State/ZIP Co vt Phone Number [facility] [address] [facility] Department [place] [address] * (ABNORMAL) POCT urinalysis dipstick (05/22/2025 2:45 PM CDT) Glucose, ur, POC Negative Negative Bilirubin, ur, POC Negative Negative Ketones, ur, POC Negative Negative Specific Harman, POC 1.010 1.003 - 1.030 Blood, ur, POC Trace(A) Negative pH, ur, POC 6.5 5.0 - 8.0 Protein, ur, POC Negative Negative Urobilinogen, urine, POC 0.2 0.2 - 1.0 mg/dL Nitrite, ur, POC Negative Negative Leukocytes, ur, POC Negative Negative Lot Number [id number] Urine 05/22/2025 2:45 PM CDT Result [facility] Ramiro Arthur MD POINT OF CARE TEST ORDERABL ES Final Result * (ABNORMAL) POCT urinalysis dipstick (05/17/2025 5:26 PM CDT) Color, Urine, POC Yellow Clarity, ur, POC Clear Clear Glucose, ur, POC Negative Negative Bilirubin, ur, POC Negative Negative Ketones, ur, POC Negative Negative Specific Harman, POC 1.020 1.003 - 1.030 Blood, ur, POC Moderate(A) Negative pH, ur, POC 6.0 5.0 - 8.0 Protein, ur, POC Trace(A) Negative Urobilinogen, urine, POC 0.2 0.2 - 1.0 mg/dL Nitrite, ur, POC Negative Negative Leukocytes, ur, POC Negative Negative Lot Number [id number] Urine 05/17/2025 5:26 PM CDT Result [facility] Chaya Mckeon NP POINT OF CARE TEST ORDERABLES Final Result * Urine culture Urine, clean voided (05/17/2025 5:26 PM CDT) Report Final Report: Less than 100,000 colonies/mL (clinically insignificant growth based on current clinical standards) Comment:Testing performed by : [facility], [address] [place]., [address] Organism (CLINICALLY INSIGNIFICANT GROWTH [facility] Urine, clean voided 05/17/2025 5:26 PM CDT 05/18/2025 1:15 AM CDT Narrative [facility] - 05/19/2025 7:25 AM CDT Testing performed by [facility] ([phone]) us Chaya Mckeon [facility] MICROBIOLOGY - GENERAL ORD ERABLES Final Result Performing Organization Address [facility] Co de Phone Number [facility] [address] Department [place] [employer] [place] [address] * Amylase (04/19/2025 12:00 PM CDT) Pathologist [facility] Amylase 53 30 - 99 Units/L Blood 04/19/2025 12:0 0 PM CDT 04/19/2025 8:37 PM CDT Ramiro Arthur MD LAB BLOOD ORDERABLES Final Result Performing Organization Address [facility] Co de Phone Number [facility] [address] Department [place] [employer] [place] [address] * Hepatic function panel (04/19/2025 12:00 PM CDT) Bilirubin, total 0.3 0.1 - 1.2 mg/dL Bilirubin, direct 0.1 0.1 - 0.3 mg/dL [facility] Comment:Lipemia present. Res ults may be affected. Protein, pl 7.0 6.5 - 8.5 g/dL [facility] Albumin 4.0 3.5 - 5.0 g/dL [facility] Alk phos 51 40 - 130 Units/L [facility] ALT 23 7 - 45 Units/L [facility] AST 27 10 - 45 Units/L [facility] Blood 04/19/2025 12:0 0 PM CDT 04/19/2025 8:37 PM CDT us Ramiro Arthur MD LAB BLOOD ORDERABLES Final Result [facility] [id number] Department [place] [address] * Srinivas Post Clip Placement Left (04/12/2025 11:17 AM CDT) Anatomical Region Laterality Modality Breast Left Mammography 04/12/2025 12:1 2 PM CDT Addenda Addendum by Nithin Arias MD on 04/14/2025 11:31 AM CDT ADDENDUM: Pathology from biopsy of the left breast showed Breast, left, 2 o'clock, 10 cm from nipple, needle core biopsy - Cystic and papillary apocrine metaplasia - Fibrocystic changes - No atypia or malignancy present Please refer to pathology report for details. Pathology is benign and concordant. Normal interval screening mammography is recommended. Results and recommendations will be discussed with the patient by [facility] or referring provider staff and will be separately documented in the medical record. Electronically signed by: Nithin Arias MD Impressions 04/12/2025 1:50 PM CDT Successful core needle biopsy of the LEFT breast. Pathology is pending. ASSESSMENT: Post Procedure Mammograms for Marker Placement Dictated by: Rupinder Hurst MD The radiology attending physician has personally reviewed this study, and had reviewed and/or edited this written report and agrees with it. Electronically signed by: Ntihin Arias MD Narrative 04/12/2025 1:50 PM CDT EXAMINATION: LEFT BREAST CORE BIOPSY UTILIZING SONOGRAPHIC GUIDANCE, PLACEMENT OF A BIOPSY TISSUE MARKER CLIP, AND LEFT FULL FIELD DIGITAL MAMMOGRAM WITH DIGITAL BREAST TOMOSYNTHESIS HISTORY: 75-year-old woman presenting for ultrasound-guided biopsy of a mixed cystic and solid mass in the LEFT breast, 2:00, 10 cm from the nipple. COMPARISON: 03/29/2025 BREAST PARENCHYMAL COMPOSITION: There are scattered areas of fibroglandular density. PROCEDURE AND FINDINGS: The risks and potential benefits of the procedures were discussed with the patient and written informed consent was obtained. After sterile preparation of the skin, 1% lidocaine and 2% lidocaine with epinephrine were utilized for local anesthesia. A small skin incision was made with a #11 scalpel blade. A 14G vacuum-assisted biopsy needle was then advanced through the skin incision to the edge of the lesion of interest at the 2 o'clock position, 10 cm from the nipple, in the LEFT breast from a lateral approach utilizing sonographic guidance. A total of 4 tissue cores were obtained through the lesion. An UltraClip wing-shaped tissue marker clip was then placed at the biopsy site. Hemostasis was achieved. Dermabond and an ice pack were applied. There was no evidence of significant immediate complication. The patient was given verbal as well as written post procedural instructions prior to release from the department. The tissue cores were submitted to surgical pathology in formalin for histologic analysis. A two-view LEFT digital mammogram, including digital breast tomosynthesis, obtained post procedure demonstrates that the tissue marker clip is in expected position. The attending radiologist, Dr. Nithin Arias MD, was present throughout the entire procedure. Dr. Hurst (breast imaging fellow) also participated in this examination. Procedure Note Nithin Arias MD - 04/12/2025 EXAMINATION: LEFT BREAST CORE BIOPSY UTILIZING SONOGRAPHIC GUIDANCE, PLACEMENT OF A BIOPSY TISSUE MARKER CLIP, AND LEFT FULL FIELD DIGITAL MAMMOGRAM WITH DIGITAL BREAST TOMOSYNTHESIS HISTORY: 75-year-old woman presenting for ultrasound-guided biopsy of a mixed cystic and solid mass in the LEFT breast, 2:00, 10 cm from the nipple. COMPARISON: 03/29/2025 BREAST PARENCHYMAL COMPOSITION: There are scattered areas of fibroglandular density. PROCEDURE AND FINDINGS: The risks and potential benefits of the procedures were discussed with the patient and written informed consent was obtained. After sterile preparation of the skin, 1% lidocaine and 2% lidocaine with epinephrine were utilized for local anesthesia. A small skin incision was made with a #11 scalpel blade. A 14G vacuum-assisted biopsy needle was then advanced through the skin incision to the edge of the lesion of interest at the 2 o'clock position, 10 cm from the nipple, in the LEFT breast from a lateral approach utilizing sonographic guidance. A total of 4 tissue cores were obtained through the lesion. An UltraClip wing-shaped tissue marker clip was then placed at the biopsy site. Hemostasis was achieved. Dermabond and an ice pack were applied. There was no evidence of significant immediate complication. The patient was given verbal as well as written post procedural instructions prior to release from the department. The tissue cores were submitted to surgical pathology in formalin for histologic analysis. A two-view LEFT digital mammogram, including digital breast tomosynthesis, obtained post procedure demonstrates that the tissue marker clip is in expected position. The attending radiologist, Dr. Nithin Arias MD, was present throughout the entire procedure. Dr. Hurst (breast imaging fellow) also participated in this examination. IMPRESSION: Successful core needle biopsy of the LEFT breast. Pathology is pending. ASSESSMENT: Post Procedure Mammograms for Marker Placement Dictated by: Rupinder Hurst MD The radiology attending physician has personally reviewed this study, and had reviewed and/or edited this written report and agrees with it. Electronically signed by: Nithin Arias MD us Ramiro Arthur MD IMG MAMMO PROCEDURES Edited Result - Final * US Guided Breast Biopsy Left (04/12/2025 11:15 AM CDT) Anatomical Region Laterality Modality Breast Left Ultrasound 04/12/2025 12:1 2 PM CDT Addenda Addendum by Nithin Arias MD on 04/14/2025 11:31 AM CDT ADDENDUM: Pathology from biopsy of the left breast showed Breast, left, 2 o'clock, 10 cm from nipple, needle core biopsy - Cystic and papillary apocrine metaplasia - Fibrocystic changes - No atypia or malignancy present Please refer to pathology report for details. Pathology is benign and concordant. Normal interval screening mammography is recommended. Results and recommendations will be discussed with the patient by [facility] or referring provider staff and will be separately documented in the medical record. Electronically signed by: Nithin Arias MD Impressions 04/12/2025 1:50 PM CDT Successful core needle biopsy of the LEFT breast. Pathology is pending. ASSESSMENT: Post Procedure Mammograms for Marker Placement Dictated by: Rupinder Hurst MD The radiology attending physician has personally reviewed this study, and had reviewed and/or edited this written report and agrees with it. Electronically signed by: Nithin Arias MD Narrative 04/12/2025 1:50 PM CDT EXAMINATION: LEFT BREAST CORE BIOPSY UTILIZING SONOGRAPHIC GUIDANCE, PLACEMENT OF A BIOPSY TISSUE MARKER CLIP, AND LEFT FULL FIELD DIGITAL MAMMOGRAM WITH DIGITAL BREAST TOMOSYNTHESIS HISTORY: 75-year-old woman presenting for ultrasound-guided biopsy of a mixed cystic and solid mass in the LEFT breast, 2:00, 10 cm from the nipple. COMPARISON: 03/29/2025 BREAST PARENCHYMAL COMPOSITION: There are scattered areas of fibroglandular density. PROCEDURE AND FINDINGS: The risks and potential benefits of the procedures were discussed with the patient and written informed consent was obtained. After sterile preparation of the skin, 1% lidocaine and 2% lidocaine with epinephrine were utilized for local anesthesia. A small skin incision was made with a #11 scalpel blade. A 14G vacuum-assisted biopsy needle was then advanced through the skin incision to the edge of the lesion of interest at the 2 o'clock position, 10 cm from the nipple, in the LEFT breast from a lateral approach utilizing sonographic guidance. A total of 4 tissue cores were obtained through the lesion. An UltraClip wing-shaped tissue marker clip was then placed at the biopsy site. Hemostasis was achieved. Dermabond and an ice pack were applied. There was no evidence of significant immediate complication. The patient was given verbal as well as written post procedural instructions prior to release from the department. The tissue cores were submitted to surgical pathology in formalin for histologic analysis. A two-view LEFT digital mammogram, including digital breast tomosynthesis, obtained post procedure demonstrates that the tissue marker clip is in expected position. The attending radiologist, Dr. Nithin Arias MD, was present throughout the entire procedure. Dr. Hurst (breast imaging fellow) also participated in this examination. us Ramiro Arthur MD IMG MAMMO PROCEDURES Edited Result - Final * Surgical pathology (04/12/2025 10:42 AM CDT) Tissue (Breast biopsy, needle core) 04/12/2025 10:42 AM CDT Comment:LEFT ultrasound guid ed breast biopsy, 2:00 10cmfn mass, BIRADS 4A Narrative PATHOLOGY [facility] - 04/13/2025 10:50 AM CDT EPIC results best viewed via link to PDF [facility] Veronica Kumar [facility] [place] [address] [place] [address] Note to Patients: This report may contain a detailed description of human tissue sent by a health care provider to the laboratory for pathologic evaluation. The content of this report is essential for diagnosis and may provide important critical findings. This information may be unfamiliar to patients to review without a medical professional present. It is advised that the patient review this report in the presence of a health care provider who can answer questions and explain the details. SURGICAL PATHOLOGY REPORT FINAL Patient Name: KIARA CINTRON Gender: F : 1950 (Age: 75) Address: [address] [place] [address] [facility] #: [id number] Taken:04/12/2025 Received:04/12/2025 Reported: 04/13/2025 Patient Type: [facility] Ancillary Service: UNKNOWN Location: Physician(s): [facility] - Nithin Arias M.D. Diagnosis: A. Breast, left, 2 o'clock, 10 cm from nipple, needle core biopsy - Cystic and papillary apocrine metaplasia - Fibrocystic changes - No atypia or malignancy present [facility]/04/13/2025 08:13 By this signature, I attest that the above diagnosis is based upon my personal examination of the slides(and/or other material indicated in the diagnosis). Gerald Freitas MD PhD Report Electronically Reviewed and Signed Out By Gerald Freitas MD PhD 04/13/2025 10:50:36 Danielle Gray M.D. History: The patient is a 75-year-old woman presenting for abnormal mammogram. Operative procedure: Left breast biopsy, BI-RADS 4A. Specimen(s) Received: A: Left ultrasound guided breast biopsy, 2:00 10cmfn mass, birads 4a Gross Description: Received in formalin, labeled with the patient s identifiers and left breast 2 o'clock 10 cm FN BI-RADS 4A are four yellow and white cores of fibrofatty tissue (1.5-2.5 cm each in length by 0.2-0.3 cm in diameter). Labeled A1 to A2. Jar 0. Placed in formalin immediately after collection. Total fixation time= 7.0 hours. sxst/04/12/2025 14:35 PA(s): Aracely Starkey By this signature, I attest that the above diagnosis is based upon my personal examination of the slides(and/or other material). Addenda/Procedures The performance characteristics of some immunohistochemical stains, fluorescence in-situ hybridization tests and immunophenotyping by flow cytometry cited in this report (if any) were determined by the Surgical Pathology and Flow Cytometry Departments at [facility] as part of an ongoing software quality analyst program and in compliance with federally mandated regulations drawn from the Clinical Laboratory Improvement Act of 1988 (CLIA '88). Some of these tests rely on the use of analyte specific reagents and are subject to specific labeling requirements by the US Food and Drug Administration. Such diagnostic tests may only be performed in a facility that is certified by the Department of Health and Human Services as a high complexity laboratory under CLIA '88. The FDA has determined that such clearance or approval is not necessary. This test is used for clinical purposes. It should not be regarded as investigational or for research. Nevertheless, federal rules concerning the medical use of analyte specific reagents require that the following disclaimer be attached to the report: This test was developed and its performance characteristics determined by the Surgical Pathology and Flow Cytometry Departments of [facility]. It has not been cleared or approved by the U. S. Food and Drug Administration. IMAGES AND SCANNED DOCUMENTS, IF INCLUDED, ONLY VIEWABLE IN PDF VERSION OF REPORT us Ramiro Arthur MD LAB PATHOLOGY ORDERABLES Fi nal Result PATHOLOGY [facility] 3rd Floor [place], [place] [phone] * (ABNORMAL) US Breast Left Limited (03/29/2025 2:00 PM CDT) Anatomical Region Laterality Modality Breast Left Ultrasound 03/29/2025 3:22 PM CDT Impressions 03/29/2025 3:22 PM CDT 1.2 cm mixed cystic and solid mass in the LEFT breast, 2:00, 10 cm the nipple, corresponding to the screen detected mass. This is of low suspicion for malignancy. Ultrasound-guided biopsy is recommended. The method of initial detection of finding was 3D screening mammography (Sdbt). OVERALL FINAL ASSESSMENT: SUSPICIOUS. BI-RADS Category 4A: Low suspicion for malignancy. RECOMMENDATION: Ultrasound-guided biopsy of mass in the LEFT breast. Dr. Allison discussed the above findings and recommendations with the patient. She has been scheduled for biopsy on 04/12/2025 at 10:00 AM. This facility will contact the referring clinician's office for an order. Electronically signed by: Manda Allison M.D. Narrative 03/29/2025 3:22 PM CDT EXAMINATION: LEFT UNILATERAL DIGITAL DIAGNOSTIC MAMMOGRAM AND DIGITAL BREAST TOMOSYNTHESIS; LEFT BREAST SONOGRAM HISTORY: 75-year-old woman with screen detected mass and focal asymmetry in the LEFT breast. COMPARISON: Multiple prior mammograms dating back to 2019 TECHNIQUE: Full field digital mammographic views of the LEFT breast were performed, including computer aided detection (CAD) and digital breast tomosynthesis (DBT). Directed ultrasound evaluation of the LEFT breast was performed. BREAST PARENCHYMAL COMPOSITION: There are scattered areas of fibroglandular density. MAMMOGRAM FINDINGS: There is a persistent oval mass with circumscribed and obscured margins in the upper outer LEFT breast. The screen detected focal asymmetry has the appearance of overlapping fibroglandular tissue and is stable dating back to multiple prior mammograms. SONOGRAM FINDINGS: LEFT breast, 2:00, 10 cm the nipple, there is a 1.2 cm x 0.5 cm x 0.8 cm mixed cystic and solid mass, corresponding to the screen detected finding. us Ramiro Arthur MD IMG MAMMO PROCEDURES Final Result * (ABNORMAL) Diagnostic Mammogram Left W Srinivas (03/29/2025 1:49 PM CDT) Anatomical Region Laterality Modality Breast Left Mammography 03/29/2025 3:22 PM CDT Impressions 03/29/2025 3:22 PM CDT 1.2 cm mixed cystic and solid mass in the LEFT breast, 2:00, 10 cm the nipple, corresponding to the screen detected mass. This is of low suspicion for malignancy. Ultrasound-guided biopsy is recommended. The method of initial detection of finding was 3D screening mammography (Sdbt). OVERALL FINAL ASSESSMENT: SUSPICIOUS. BI-RADS Category 4A: Low suspicion for malignancy. RECOMMENDATION: Ultrasound-guided biopsy of mass in the LEFT breast. Dr. Allison discussed the above findings and recommendations with the patient. She has been scheduled for biopsy on 04/12/2025 at 10:00 AM. This facility will contact the referring clinician's office for an order. Electronically signed by: Manda Allison M.D. Narrative 03/29/2025 3:22 PM CDT EXAMINATION: LEFT UNILATERAL DIGITAL DIAGNOSTIC MAMMOGRAM AND DIGITAL BREAST TOMOSYNTHESIS; LEFT BREAST SONOGRAM HISTORY: 75-year-old woman with screen detected mass and focal asymmetry in the LEFT breast. COMPARISON: Multiple prior mammograms dating back to 2019 TECHNIQUE: Full field digital mammographic views of the LEFT breast were performed, including computer aided detection (CAD) and digital breast tomosynthesis (DBT). Directed ultrasound evaluation of the LEFT breast was performed. BREAST PARENCHYMAL COMPOSITION: There are scattered areas of fibroglandular density. MAMMOGRAM FINDINGS: There is a persistent oval mass with circumscribed and obscured margins in the upper outer LEFT breast. The screen detected focal asymmetry has the appearance of overlapping fibroglandular tissue and is stable dating back to multiple prior mammograms. SONOGRAM FINDINGS: LEFT breast, 2:00, 10 cm the nipple, there is a 1.2 cm x 0.5 cm x 0.8 cm mixed cystic and solid mass, corresponding to the screen detected finding. us Ramiro Arthur MD IMG MAMMO PROCEDURES Final Result * (ABNORMAL) SCREENING MAMMOGRAM BILATERAL W SRINIVAS (03/22/2025 9:54 AM CDT) Anatomical Region Laterality Modality Breast Bilateral Mammography Impressions 03/23/2025 12:13 PM CDT Left 1) Mass: Left breast 1 cm mass in the upper outer quadrant in the middle depth. Assessment: 0 - Incomplete. Diagnostic mammogram with possible ultrasound is recommended. 2) Focal Asymmetry: Left breast focal asymmetry at 3 o'clock in the middle depth. Assessment: 0 - Incomplete. Diagnostic mammogram with possible ultrasound is recommended. Right No evidence of malignancy. OVERALL BI-RADS FINAL ASSESSMENT: 0 - Incomplete: Needs Additional Imaging Evaluation RECOMMENDATIONS: Recommend left breast diagnostic mammogram with possible ultrasound. Narrative 03/23/2025 12:13 PM CDT EXAMINATION: SCREENING MAMMOGRAM BILATERAL W SRINIVAS: 03/22/2025 COMPARISON: Relevent prior studies available at the time of interpretation were reviewed, including the most recent mammogram on: 10/28/2023, 09/03/2022, 05/03/2021, 06/02/2019, 01/02/2017, 10/25/2015, 10/20/2014, and 08/19/2013. TECHNIQUE: Mammography was performed with 2D and digital breast tomosynthesis (DBT) images. CAD was utilized. BREAST PARENCHYMAL COMPOSITION: There are scattered areas of fibroglandular density. FINDINGS: Left 1) Mass: There is a 1 cm oval mass seen in the upper outer quadrant of the left breast in the middle depth. This finding needs additional imaging evaluation. 2) Focal Asymmetry: There is a focal asymmetry seen in the left breast at 3 o'clock in the middle to posterior depth, which may have a slightly distorted appearance on this exam which could represent a change from prior. This finding needs additional imaging evaluation. Right There is no suspicious mass, calcification, or architectural distortion. 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 IMPRESSION: Normal bone mass. REFERENCE: Bone mineral density: T-Score: Normal (T-score above or = -1.0) Low bone mass (T-score between -1.0 and -2.5) replaces the previously used term osteopenia Osteoporosis (T-score = or below -2.5) Z-Score: Within the expected range for age (Z-score above -2.0) Below the expected range for age (Z-score is -2.0 or below) Please see below follow up recommendations. Medical evaluation for secondary causes of low bone mineral density may be appropriate. FRAX is a World Health Organization validated fracture risk assessment tool that calculates a person's 10 year probability of a major osteoporosis related fracture and hip fracture. According to the National Osteoporosis Foundation guidelines, postmenopausal women and men age 50 or older with low bone mass and a 10 year probability of a major osteoporosis related fracture = or greater than 20% or a 10 year probability of a hip fracture = or greater than 3% should be considered for pharmacological treatment for the prevention of osteoporosis. For further information, including treatment recommendations, please refer to the 2019 ISCD Official Positions (http://www.iscd.org) and the NOF's Clinician's Guide to Prevention and Treatment of Osteoporosis (http://www.nof.org/professionals/clinical-guidelines) THIS IS AN ELECTRONICALLY VERIFIED FINAL REPORT 01/28/2024 11:50 PM - Electronically signed by Hever Salazar M.D. 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 IMPRESSION: Normal bone mass. REFERENCE: Bone mineral density: T-Score: Normal (T-score above or = -1.0) Low bone mass (T-score between -1.0 and -2.5) replaces thepreviously used term osteopenia Osteoporosis (T-score = or below -2.5) Z-Score: Within the expected range for age (Z-score above -2.0) Below the expected range for age (Z-score is -2.0 or below) Please see below follow up recommendations. Medical evaluation forsecondary causes of low bone mineral density may be appropriate. FRAX is a World Health Organization validated fracture risk assessmenttool that calculates a person's 10 year probability of a major osteoporosisrelated fracture and hip fracture. According to the National OsteoporosisFoundation guidelines, postmenopausal women and men age 50 or older with low bonemass and a 10 year probability of a major osteoporosis related fracture = or greater than 20% or a 10 year probability of a hip fracture = or greaterthan 3% should be considered for pharmacological treatment for the preventionof osteoporosis. For further information, including treatment recommendations, please referto the 2019 ISCD Official Positions (http://www.iscd.org) and the NOF's Clinician's Guide to Prevention and Treatment of Osteoporosis (http://www.nof.org/professionals/clinical-guidelines) THIS IS AN ELECTRONICALLY VERIFIED FINAL REPORT 01/28/2024 11:50 PM - Electronically signed by Hever Salazar M.D. MF: [email or web address] Report ID: [id number] Reading Location: [id number] Ramiro Arthur MD IMG DXA PROCEDURES Final Re sult * Hepatitis C antibody Blood (09/15/2023 1:13 PM SENIOR ACCOUNT EXECUTIVE) Hep C Ab Nonreactive Nonreactive MISAEL DESIR Comment: Interpretive Data Nonreactive: Antibodies to HCV not detected. Does NOT exclude the possibility of recent exposure to HCV. Equivocal: Equivocal for HCV antibodies. Supplemental molecular testing will be automatically performed to determine infection status in accordance with current CDC screening recommendations. Reactive: Positive for HCV antibodies. This may represent current or past HCV infection. Supplemental molecular testing will be automatically performed to determine current infection status in accordance with current CDC screening recommendations. Interpretive data was last revised on 2019. Blood 09/15/2023 1:13 PM SENIOR ACCOUNT EXECUTIVE 09/15/2023 8:41 PM SENIOR ACCOUNT EXECUTIVE Ramiro Arthur MD LAB MICROBIOLOGY - GENERAL ORDERABLES Edited Result - Final Performing Organization Address City/State/[facility] Co de Phone Number MISAEL DESIR [id number] [place] [address] from Last 3 Months or Most Recently Relevant to Health Maintenance Insurance T MEDICARE AETNA MEDICARE AETNA MEDICARE Care Teams Mechanical Cad Designer Relationship Specialty Start Date End Date Ramiro Arthur MD [address] [address] PCP - General Family Medicine 09/15/23 Dinesh Vargas MD [address] [facility] [address] [place] [address] Referring Physician Pulmonary Disease 09/15/23 Shiv Stovall MD [address] [place] [address] Referring Physician Obstetrics and Gynecology 04/12/25
--- OUTSIDE RECORDS SUMMARY | 2025-06-25 14:07 | XMS_ITS | Encounter Summary ---
Author Organization [facility] Healthcare Address [address] [place] [address] Care Team Providers Care Bagel Maker Name Role Phone Ramiro Arthur MD Primary Care Provider [phone] Dinesh Vargas MD Unavailable Shiv Stovall MD Unavailable Encounter Details Date Type Department Care Team (Late st Contact Info) Description 05/25/2025 Results Follow-Up [facility] Medical [facility] Primary Care at [address] [address] Ramiro Arthur MD [address] [place] [address] [address] [place] [address] Thyroid Function Todd, Comprehensive metabolic panel, CBC with auto differential, Additional followed-up results: 4 Social History Tobacco Use Types Packs/Day Years Used Date Smoking Tobacco: Never Smokeless Tobacco: Never AUDIT-C Answer Date Recorded Q1: How often do you have a drink containing alcohol? 4 or more times a week 09/15/2023 Q2: How many drinks containi ng alcohol do you have on a typical day when you are drinking? 1 or 2 3 Q3: How often do you have si x or more drinks on one occasion? 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 Gender Identity Not on file Sexual Orientation Not on file documented as of this encounter Plan of Treatment Not on file documented as of this encounter Visit Diagnoses Not on filedocumented in this encounter Care Teams Bagel Maker Relationship Specialty Start Date End Date Ramiro Arthur MD [address] [facility] [address] [place] [address] PCP - General Family Medicine 09/15/23 Dinesh Vargas MD [address] [facility] [address] [place] [address] Referring Physician Pulmonary Disease 09/15/23 Shiv Stovall MD [address] [place] [address] Referring Physician Obstetrics and Gynecology 04/12/25 documented as of this encounter
--- OUTSIDE RECORDS SUMMARY | 2025-06-25 14:07 | XMS_ITS | Encounter Summary ---
Author Organization [facility] Healthcare Address [address] [place] [address] Care Team Providers Care Metal Trimmer Name Role Phone Ramiro Arthur MD Primary Care Provider [phone] Dinesh Vargas MD Unavailable [phone] Shiv Stovall MD Unavailable Encounter Details Date Type Department Care Team (Late st Contact Info) Description 05/19/2025 Results Follow-Up [facility] Medical Group Convenient Care at [address] [address] Jennifer Case, FIRE PROTECTION SPECIALIST [address] [place] [address] [address] [place] [address] Urine culture Urine, clean voided Social History Tobacco Use Types Packs/Day Years [...] on file 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 Gender Identity Not on file Sexual Orientation Not on file documented as of this encounter Plan of Treatment Not on file documented as of this encounter Visit Diagnoses Not on filedocumented in this encounter Care Teams Metal Trimmer Relationship Specialty Start Date End Date Ramiro Arthur MD [address] [facility] [address] [place] [address] PCP - General Family Medicine 09/15/23 Dinesh Vargas MD [address] [facility] [address] [place] [address] Referring Physician Pulmonary Disease 09/15/23 Shiv Stovall MD [address] [place] [address] Referring Physician Obstetrics and Gynecology 04/12/25 documented as of this encounter
--- OUTSIDE RECORDS SUMMARY | 2025-06-25 14:07 | XMS_ITS | Encounter Summary ---
Author Organization [facility] Health Address [address] [facility] [place] [address] Care Team Providers Care Center Sales And Service Associate Name Role Phone Shlomo Lewis MD Unavailable Pcp, [facility] Primary Care Provider Unavailable Bia Ochoa Unavailable [phone] Regla Martinez MA Unavailable [phone] Ramiro Arthur MD Primary Care Provider Encounter Details Date Type Department Care Team (Late st Contact Info) Description 08/13/2023 Lab Requisition [facility] Physician [facility] - DermPath Lab [address] [facility], [place] [address] Nidia Rosenbaum, DO [address] [facility] [address] [place] [address] Social History Tobacco Use Types Packs/Day Years Used Date Smoking Tobacco: Former Cigarettes Smokeless Tobacco: Never Alcohol Use Standard Drinks/Week Comments Yes 6.7 (1 standard drink = 0.6 oz p ure alcohol) PHQ-2 Answer Date Recorded PHQ2 TOTAL SCORE 0 12/26/2022 Comments No Sex and Gender Information Value Date Recorded Sex Assigned at Female 12/21/2020 11:57 AM CDT Legal Sex Female 1:01 PM REAL ESTATE SALES ASSOCIATE Gender Identity Female 12/21/2020 11:57 AM CDT Sexual Orientation Straight 12/21/2020 11 :57 AM CDT 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 Author Blood Pressure < 140/90 Blood Pressure 122/88(2022 9:34 AM CDT) No Mix, Keisha P documented as of this encounter Procedures Procedure Name Priority Date/Time Associated Diagnosis Comments DERMATOPATHOLOGY Routine 08/13/2023 9:45 AM REAL ESTATE SALES ASSOCIATE documented in this encounter Results * DERMATOPATHOLOGY (08/13/2023 9:45 AM REAL ESTATE SALES ASSOCIATE) Case Report Dermatopathology Report Case: [id number] Authorizing Provider: Nidia Rosenbaum DO Collected: 08/13/2023 09:45 AM Ordering Location: [facility] DermPath Lab Received: 08/14/2023 09:38 AM Pathologist: Annika Chavez MD Specimen: Skin, right back 2:24 PM REAL ESTATE SALES ASSOCIATE DERMATOPATHOLOGY LABORATORY Final Diagnosis Specimen A. SKIN, right back: SEBORRHEIC KERATOSIS, IRRITATED AND INFLAMED (L82.0) 3 2:24 PM REAL ESTATE SALES ASSOCIATE DERMATOPATHOLOGY LABORATORY at 1424 REAL ESTATE SALES ASSOCIATE Clinical History ISK R/O NMSC 2:24 PM [facility] DERMATOPATHOLOGY LABORATORY Gross Description Specimen A: Received is one formalin filled container labeled with the patient's name and designated right back. The specimen consists of a shave biopsy measuring 5x5x1 mm. Jar 0. 2:24 PM REAL ESTATE SALES ASSOCIATE DERMATOPATHOLOGY LABORATORY Microscopic Description Specimen A. SKIN, right back: Sections show acanthosis, papillomatosis, hyperkeratosis, and squamous eddies. There is a lymphohistiocytic infiltrate within the papillary dermis. 2:24 PM REAL ESTATE SALES ASSOCIATE DERMATOPATHOLOGY LABORATORY Disclaimer An external and internal positive and negative controls are appropriate for the histochemical, immunohistochemical and immunofluorescence stain(s) in this case (if any), except where stated explicitly. The performance characteristics of the stain(s) cited in this report were developed and its performance characteristic determined by the Dermatopathology Laboratory at [facility], directed by Dr. Alvaro Bobo. These tests need not be, and therefore are not, approved by the [place] Food and Drug Administration. The tests are used for clinical purposes. Billing Codes Specimen Charges Stain Charges 00596 1 3 2:24 PM REAL ESTATE SALES ASSOCIATE DERMATOPATHOLOGY LABORATORY Embedded Images 3 2:24 PM REAL ESTATE SALES ASSOCIATE DERMATOPATHOLOGY LABORATORY Pathology/Cytolo gy TISSUE SPECIMEN FROM SKIN / Unknown 08/13/2023 9:45 AM REAL ESTATE SALES ASSOCIATE 08/14/2023 9:38 AM REAL ESTATE SALES ASSOCIATE us Nidia Rosenbaum DO LAB - PATHOLOGY/CYTOLOGY ORDERABLES Final Result DERMATOPATHOLOGY LABORATORY [facility] Department of Dermatology [address], [address] [phone] documented in this encounter Visit Diagnoses Not on filedocumented in this encounter Care Teams Center Sales And Service Associate Relationship Specialty Start Date End Date Shlomo Lewis MD [address] [place] [address] PCP - [facility] 02/26/23 10/15/24 Pcp, [facility]- PCP - General 04/24/23 08/27/23 Ramiro Arthur MD [address] [place] [address] [address] [place] [id number] PCP - General Family Medicine 08/28/23 Bia Ochoa Care Coordination Specialist Care Management 02/10/24 02/10/24 Regla Martinez MA [address] [place] [id number] Care Coordination Specialist Care Management 10/10/24 10/10/24 documented as of this encounter
--- OUTSIDE RECORDS SUMMARY | 2025-06-25 14:07 | XMS_ITS | Encounter Summary ---
Author Organization [facility] Healthcare Address [address] [place] [address] Care Team Providers Care Unit Control Clerk Name Role Phone Ramiro Arthur MD Primary Care Provider [phone] Dinesh Vargas MD Unavailable Shiv Stovall MD Unavailable [phone] Encounter Details Date Type Department Care Team (Late st Contact Info) Description 04/24/2025 Results Follow-Up [facility] Medical Group Primary Care at [address] [address] Ramiro Arthur MD [address] [place] [address] [address] [place] [address] Hepatic function panel, Amylase Social History Tobacco Use Types Packs/Day Years [...] on file 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 [address] [place] [address] PCP - General Family Medicine 09/15/23 Dinesh Vargas MD [address] [facility] [address] [place] [address] Referring Physician Pulmonary Disease 09/15/23 Shiv Stovall MD [address] [place] [address] Referring Physician Obstetrics and Gynecology 04/12/25 documented as of this encounter
--- NOTE | 2025-06-25 14:09 | ECG_ITS ---
Test Date: 2025-06-25 14:16:02 Measurements Intervals [place] Rate: 96 P: 50 GA: 176 QRS: -41 QRSD: 94 T: 30 QT: 352 QTc: 447 Interpretive Statements SINUS RHYTHM WITH FREQUENT VENTRICULAR PREMATURE COMPLEXES INFERIOR MYOCARDIAL INFARCTION , PROBABLY OLD Electronically Signed On 06-25-2025 20:51:05 CDT by Hao Esposito D.O
[2025-06-25] MEDS: ASPIRIN 81 MG CHEWABLE TABLET 324 MG PO (14:38)
--- NOTE | 2025-06-25 14:39 | ED.CHESTPAIN ---
HPI - Chest Pain General Chief Complaint: Chest Pain Stated Complaint: heart problems Time Seen by Provider: 06/25/25 14:15 History of Present Illness HPI narrative: Patient is a 75-year-old female who presents the ER with chest pain. She reports she has been having exertional shortness of breath for the last couple of months. Worse with walking from room to room. No wheezing. No cough for fever. No real chest pain when she this was occurring. Today she developed chest tightness and shortness of breath while at rest and with exertion and it never went away. That lasted for several hours. No occurred right after having lunch. On the drive here pain the began to nhan but then came back while she was in the hallway coming up to the ER. She has not chest tightness this time. No history of coronary disease but has a mother and father who both had MIs. Related Data Home Medications ?Medication ?Instructions ?Recorded ?Confirmed ?Last Taken ?Type cetirizine 10 mg capsule (Zyrtec) 10 mg PO DAILY PRN 03/20/22 04/04/25 Unknown History cholecalciferol (vitamin D3) 25 25 mcg PO DAILY 03/20/22 04/04/25 Unknown History mcg (1,000 unit) capsule escitalopram oxalate 10 mg tablet 10 mg PO DAILY 03/20/22 04/04/25 Unknown History folic acid 800 mcg tablet 0.8 mg PO DAILY 03/20/22 04/04/25 Unknown History lisinopril 10 mg tablet 10 mg PO DAILY 03/20/22 04/04/25 Unknown History multivitamin 1 tablet PO DAILY 03/20/22 04/04/25 Unknown History ezetimibe 10 mg tablet 10 mg PO DAILY 04/04/25 04/04/25 Unknown History ferrous sulfate 137 mg (45 mg 137 mg PO DAILY 04/04/25 04/04/25 Unknown History iron) tablet,extended release omega 5-uag-kix-fish oil 1,200 mg cap PO 04/04/25 04/04/25 Unknown History (144 mg-216 mg) capsule (Fish Oil) Allergies Allergy/AdvReac Type Severity Reaction Status Date / Time No Known Allergies Allergy Mild Verified 04/04/25 09:26 Review of Systems Review of Systems: All systems reviewed & are unremarkable except as noted in HPI and below Constitutional: Constitutional: Reports no additional constitutional complaints ENT: Reports system reviewed and no additional complaints, except as documented Cardiovascular: Cardiovascular: Reports no additional cardiovascular complaints Respiratory: Respiratory: Reports no additional respiratory complaints Gastrointestinal: Gastrointestinal: Reports no additional gastrointestinal complaints [facility] Past Medical History Medical History (Updated 06/25/25 @ 16:48 by Kuldip Hyatt MD) Hyperlipidemia Screening mammogram, encounter for Encounter for special screening examination for neoplasm of cervix Hypertension Depression Surgical History Surgical History History of knee surgery (~2006) rt knee surgery History of cholecystectomy (~2012) Family History Family History Father Hypertension Diabetes mellitus Heart disease Mother Hypertension Family history of chronic obstructive pulmonary disease Heart disease Sibling Family history of malignant neoplasm of breast in first degree relative sister Diabetes mellitus sister Hypertension sister Social History Social History (Updated 04/04/25 @ 09:38 by IMELDA Bob) Smoking status: Former smoker Second hand tobacco smoke exposure: Yes (as child) Alcohol intake: current Drinks per week: 7 Substance use: never Substance use type: does not use Do You Feel Safe in your Home?: Yes Lack of Transportation: No Lack of Food: Never True Current Housing: I Have Housing Concerned About Future Housing: No Difficulty Paying Gas/Electric Bills: No Difficulty Paying for Meds: No Currently Unemployed: No Education: Master's Degree or Higher Difficulty w/ Childcare or Family Care: No Living arrangements: other Additional living arrangements comments: Occupation/Education: retired Gender identity (if verbalized by the patient): Female Sexual Orientation (if Verbalized by the Patient): Straight or Heterosexual Exam Narrative: GENERAL: Well-appearing, well-nourished, and in no acute distress. HEAD: Normocephalic, atraumatic. ENT: Mucous membranes moist. CHEST: Clear to auscultation. No respiratory distress. HEART: Regular rate and rhythm. Normal peripheral pulses. ABDOMEN: Soft, nontender, nondistended. EXTREMITIES: Normal range of motion. No edema. SKIN: Warm, dry, no rash. NEURO: Alert and oriented x3. PSYCH: Normal mood and affect. Course Course Emergency Course: Patient resting comfortably. No chest pain at this time. Blood pressures improved without treatment. Troponin negative x1. Will admit for observation and stress testing. Vital Signs Vital signs: Vital Signs Temperature 97.9 F 06/25/25 14:06 Pulse Rate 57 L 06/25/25 14:06 Respiratory Rate 16 06/25/25 14:06 Blood Pressure 195/102 H 06/25/25 14:06 Pulse Oximetry 98 06/25/25 14:06 Temperature 97.9 F 06/25/25 14:06 Pulse Rate 57 L 06/25/25 14:06 Respiratory Rate 16 06/25/25 14:06 Blood Pressure 195/102 H 06/25/25 14:06 Pulse Oximetry 97 06/25/25 14:21 Oxygen Delivery Room Air 06/25/25 14:21 MDM - Chest Pain Lab Data 06/25/25 14:40 06/25/25 14:40 Labs: Lab Results 06/25/25 Range/Units 14:40 WBC 9.5 (4.5-10.0) K/mm3 RBC 4.95 (4.2-5.4) M/mm3 Hgb 14.6 (12.0-15.0) g/dL Hct 42.8 (37.0-47.0) % MCV 86.5 (80-100) fl MCH 29.5 (26-34) pg MCHC 34.1 (32-36) g/dl RDW 13.0 (11.5-14.5) % Plt Count 257 (150-375) k/mm3 MPV 10.7 H (7.4-10.4) fl Immature Gran % (Auto) 0.3 (0-0.5) % Neut % (Auto) 68.1 (45.5-73.1) % Lymph % (Auto) 21.6 (18.3-44.2) % [place] % (Auto) 5.0 (2.6-8.5) % Eos % (Auto) 4.2 (0-4.4) % Baso % (Auto) 0.8 (0.2-1.2) % Lymph # (Auto) 2.04 (0.9-3.2) K/mm3 [place] # (Auto) 0.5 (0.1-0.6) K/mm3 Eos # (Auto) 0.4 H (0-0.3) K/mm3 Baso # (Auto) 0.1 (0.0-0.1) K/mm3 Abs Immat Gran (auto) 0.03 (0.00-0.031) K/mm3 Absolute Neuts (auto) 6.4 (1.3-6.7) K/mm3 Absolute Nucleated RBC 0.000 (0.0-0.012) K/mm3 Nucleated RBC % 0.0 (0.0-0.2) % PT 13.0 (11.1-14.7) Seconds INR 1.0 APTT 29.0 (22.3-36.8) Seconds Sodium 127 L (137-145) mmol/L Potassium 4.0 (3.4-5.0) mmol/L Chloride 94 L (98-107) mmol/L Carbon Dioxide 25 (22-30) mmol/L Anion Gap 8 (4-12) mmol/L BUN 11 (7-17) mg/dL Creatinine 0.85 (0.7-1.0) mg/dL Estim Creat Clear Calc 60 ml/min Estimated GFR > 60 (59 - ) Glucose 178 H (65-110) mg/dL Calcium 8.9 (8.4-10.2) mg/dL Total Bilirubin 0.6 (0.2-1.3) mg/dL AST 36 (14-36) U/L ALT 25 (6-35) U/L Alkaline Phosphatase 50 (38-126) U/L Troponin I < 0.012 (0.000-0.034) ng/mL Total Protein 7.3 (6.3-8.2) g/dL Albumin 4.1 (3.5-5.1) g/dL Lipase 74 (23-300) U/L Imaging Data Radiologist's impression: ITS Impressions Chest X-Ray 06/25/25 14:55 Impression: No acute cardiopulmonary abnormality. ECG Data EKG #1: ECG completion date: 06/25/25 ECG completion time: 14:16 EKG Interpretation: normal rate (96), sinus rhythm, PVCs, non-specific ST changes and normal QRS Discharge Plan Discharge Clinical Impression: Chest pain Patient Disposition: Still a Patient Condition: Stable Patient Language: [place] Prescriptions: No Action multivitamin Tablet 1 tablet PO DAILY lisinopril 10 mg tablet 10 mg PO DAILY folic acid 800 mcg tablet 0.8 mg PO DAILY cholecalciferol (vitamin D3) 25 mcg (1,000 unit) capsule 25 mcg PO DAILY escitalopram oxalate 10 mg tablet 10 mg PO DAILY Zyrtec 10 mg capsule 10 mg PO DAILY PRN ezetimibe 10 mg tablet 10 mg PO DAILY omega 1-jxq-esi-fish oil [Fish Oil] 1,200 (144-216) mg capsule PO ferrous sulfate 137 mg (45 mg iron) tablet extended release 137 mg PO DAILY estradiol [Estrace] 0.01 % (0.1 mg/gram) cream 1 g vaginal 3XW Qty: 42.5 2RF Follow-up/Referrals: Sandhya,Ramiro Bearden MD [Primary Care Provider, Unknown] Quality HEART score for chest pain patients History: moderately suspicious ECG: non specific repolarization disturbance/LBTB/PM Age: > or = to 65 years Risk factors: 1 or 2 risk factors Troponin: < or = to 1x normal limit Heart score: 5
[2025-06-25 14:50] LABS: Hematocrit 42.8 % (37.0-47.0); Hemoglobin 14.6 g/dL (12.0-15.0); Immature Granulocyte Percent A 0.3 % (0-0.5); Lymphocytes Absolute Auto 2.04 K/mm3 (0.9-3.2); Mean Corpuscular HGB Conc 34.1 g/dl (32-36); Mean Corpuscular Hemoglobin 29.5 pg (26-34); Mean Corpuscular Volume 86.5 fl (80-100); Nucleated Red Blood Cells Absolute Auto 0.000 K/mm3 (0.0-0.012); Nucleated Red Blood Cells Perc 0.0 % (0.0-0.2); Platelet Count Result 257 k/mm3 (150-375); Red Blood Count 4.95 M/mm3 (4.2-5.4); White Blood Count 9.5 K/mm3 (4.5-10.0)
[2025-06-25 14:59] LABS: INR 1.0; Prothrombin Time 13.0 Seconds (11.1-14.7)
[2025-06-25 15:00] LABS: Partial Thromboplastin Time 29.0 Seconds (22.3-36.8)
[2025-06-25 15:05] LABS: Alanine Aminotransferase 25 U/L (6-35); Albumin Level 4.1 g/dL (3.5-5.1); Alkaline Phosphatase 50 U/L (38-126); Anion Gap 8 mmol/L (4-12); Aspartate Amino Transferase 36 U/L (14-36); Bilirubin,Total 0.6 mg/dL (0.2-1.3); Blood Urea Nitrogen 11 mg/dL (7-17); Calcium 8.9 mg/dL (8.4-10.2); Carbon Dioxide 25 mmol/L (22-30); Chloride 94 mmol/L (98-107); Estimated CRCL calculation 60 ml/min; Estimated Glomerular Filt Rate > 60; Glucose 178 mg/dL (65-110); Lipase 74 U/L (23-300); Potassium 4.0 mmol/L (3.4-5.0); Sodium 127 mmol/L (137-145); Total Protein 7.3 g/dL (6.3-8.2)
[2025-06-25 15:24] LABS: Troponin I < 0.012 ng/mL (0.000-0.034)
--- NOTE | 2025-06-25 17:03 | ECG_ITS ---
Test Date: 2025-06-25 17:07:38 Measurements Intervals [place] Rate: 65 P: 4 NC: 141 QRS: -47 QRSD: 92 T: 11 QT: 394 QTc: 412 Interpretive Statements SINUS RHYTHM LEFTWARD AXIS POSSIBLE ANTERIOR MYOCARDIAL INFARCTION , PROBABLY OLD Electronically Signed On 06-25-2025 20:51:41 CDT by Hao Esposito D.O
--- NOTE | 2025-06-25 17:26 | ADMGEN ---
This patient, Kiara Garcia, was admitted to IMU Room 205-02. Patient/family oriented to hospital policies and general routines including ID bracelet, bed and alarms, visiting hours, pain management, procedures, bathroom and other care routines, personal items, smoking policy, room service/diet, and visiting hours. Information on how to activate the Rapid Response Team has been discussed. Patient/Family are encouraged to report perceived risks to care and to ask questions if they do not understand what they are told or what they should do.
--- NOTE | 2025-06-25 17:43 | PM.IMHP ---
H&P: HPI History of Present Illness Date/Time: 06/25/25 17:43 Chief Complaint: Chest Pain Narrative: 75 y/o F with PMH of hypertension, hyperlipidemia, and depression presents here with chest pain. The patient presents here from home on 06/25 for further evaluation of chest pain, chest tightness, and palpitations. She reports she has been experiencing exertional shortness of breath for the past 2-2.5 months that worsens with ambulation (short as just room to room). Shortness of breath has been progressively worsening but would be alleviated with rest or reclining. She denied accompanying wheezing, cough, fever, chest pain, weight gain, lower extremity edema, or chills. However, the shortness of breath occurred while at rest today and was accompanied by chest tightness/discomfort and tingling in her bilateral upper extremities. She reports the event lasted for several hours which prompted her to seek care in the emergency department. While driving to the ER she reports the pain started to resolve but then intensified after arrival. She described the chest tightness as dull, accompanied by palpitations, midsternal, nonradiating, constant, aggravated by exertion, and no alleviating factors. She reports she is no longer having chest tightness/pain but is still having shortness of breath at rest/conversational. She denies any personal history of coronary artery disease, however she has a familial history (mother and father both had myocardial infarctions). Last had a stress test around 8 years ago with no abnormalities. Initial VS at presentation: 97.9? F, HR 57, R 16, 195/102, and 98% on RA. BP now 138/75 without interventions. ED workup showed: No leukocytosis, no anemia, normal coags, sodium 127, creatinine 0.85 and GFR >60, glucose 178, initial troponin was negative. CXR showed no acute cardiopulmonary abnormality. Initial EKG showed sinus rhythm with frequent PVCs, possible anterior NE probably old, inferior NE probably old. Review of Systems Review of Systems: All systems reviewed & are unremarkable except as noted in HPI and below [facility] Past Medical History Medical History (Updated 06/25/25 @ 19:03 by Yolande Jackson, HERMANN) Hyperlipidemia Screening mammogram, encounter for Encounter for special screening examination for neoplasm of cervix Hypertension Depression Surgical History Surgical History History of knee surgery (~2006) rt knee surgery History of cholecystectomy (~2012) Family History Family History Father Hypertension Diabetes mellitus Heart disease Mother Hypertension Family history of chronic obstructive pulmonary disease Heart disease Sibling Family history of malignant neoplasm of breast in first degree relative sister Diabetes mellitus sister Hypertension sister Social History Social History Smoking status: Never smoker Second hand tobacco smoke exposure: Yes (as child) Alcohol intake: never Drinks per week: 7 Substance use: never Substance use type: does not use Do You Feel Safe in your Home?: Yes Lack of Transportation: No Lack of Food: Never True Current Housing: I Have Housing Concerned About Future Housing: No Difficulty Paying Gas/Electric Bills: No Difficulty Paying for Meds: No Currently Unemployed: No Education: Master's Degree or Higher Difficulty w/ Childcare or Family Care: No Living arrangements: other Additional living arrangements comments: Occupation/Education: retired Gender identity (if verbalized by the patient): Female Sexual Orientation (if Verbalized by the Patient): Straight or Heterosexual Spiritual care concerns: No Meds Home Medications and Allergies Home Medications ?Medication ?Instructions ?Recorded ?Confirmed ?Type cholecalciferol (vitamin D3) 25 25 mcg PO DAILY 03/20/22 06/25/25 History mcg (1,000 unit) capsule escitalopram oxalate 10 mg tablet 10 mg PO DAILY 03/20/22 06/25/25 History folic acid 800 mcg tablet 0.8 mg PO DAILY 03/20/22 06/25/25 History multivitamin 1 tablet PO DAILY 03/20/22 06/25/25 History estradiol 0.01% (0.1 mg/gram) 1 g vaginal 3XW #42.5 grams 02/28/25 06/25/25 Rx vaginal cream (Estrace) lisinopril 20 1 tablet PO DAILY 06/25/25 06/25/25 History mg-hydrochlorothiazide 12.5 mg tablet Allergies Allergy/AdvReac Type Severity Reaction Status Date / Time No Known Allergies Allergy Mild Verified 04/04/25 09:26 Vital Signs Vital Signs - 24 hr 06/25/25 14:06 06/25/25 14:21 06/25/25 15:04 Temperature 97.9 F Pulse Rate 57 L 81 Respiratory Rate 16 20 Blood Pressure 195/102 H Pulse Oximetry 98 97 92 Oxygen Delivery Room Air 06/25/25 15:15 06/25/25 15:31 06/25/25 15:32 Temperature Pulse Rate 86 82 89 Respiratory Rate 24 H 17 20 Blood Pressure 138/75 Pulse Oximetry 93 91 96 Oxygen Delivery 06/25/25 17:08 Temperature Pulse Rate 69 Respiratory Rate 13 Blood Pressure Pulse Oximetry 98 Oxygen Delivery Exam Const: General: comfortable and no acute distress Other: , female, elderly, nontoxic appearance HENMT: Face/Nose/Sinus: Normal nares present Mouth: Yes moist mucous membranes Eyes: General: appearance normal, both eyes and all related structures Sclera: sclerae normal Pupils: Equal, round and reactive pupils present EOM: EOMs intact bilaterally Resp: Effort & Inspection: normal respiratory effort Auscultation: clear to auscultation bilaterally Cardio: Rate: regular rate Rhythm: regular rhythm Other: S1-S2 present without murmur, rub, ectopy GI: Other: Abdomen soft, nondistended, nontender. Normoactive bowel sounds in all quadrants. Skin: General skin exam: normal color and no rashes or lesions noted Wounds: no wounds Neuro: Speech: normal speech Motor exam (neuro): 5/5 motor strength present throughout Sensory Exam: normal sensation Other: A&O x4 Extrem: General: normal to inspection Psych: Mental Status: mental status grossly normal Affect: normal affect Other: Good insight and judgment, very pleasant H&P: Results Labs Labs: Short CBC 06/25/25 Range/Units 14:40 WBC 9.5 (4.5-10.0) K/mm3 Hgb 14.6 (12.0-15.0) g/dL Hct 42.8 (37.0-47.0) % Plt Count 257 (150-375) k/mm3 BMP 06/25/25 14:40 Sodium 127 L Potassium 4.0 Chloride 94 L Carbon Dioxide 25 BUN 11 Creatinine 0.85 Glucose 178 H Calcium 8.9 Cardiac Enzymes 06/25/25 Range/Units 14:40 Troponin I < 0.012 (0.000-0.034) ng/mL Liver Function 06/25/25 Range/Units 14:40 Total Bilirubin 0.6 (0.2-1.3) mg/dL AST 36 (14-36) U/L ALT 25 (6-35) U/L Alkaline Phosphatase 50 (38-126) U/L Albumin 4.1 (3.5-5.1) g/dL Assessment and Plan Assessment and plan (1) Chest pain: Qualifiers: Chest pain type: unspecified Qualified Code(s): R07.9 - Chest pain, unspecified Code(s): R07.9 - Chest pain, unspecified Status: Acute Assessment and Plan: Patient has been experiencing exertional shortness of breath for the past 2 months without weight gain or peripheral edema. Shortness of breath would be alleviated with rest or reclining. However now shortness of breath occurred at rest and was accompanied by chest tightness and bilateral upper extremity tingling. Troponins have thus far been negative and no concerning changes on EKG. - EKG, initial: Sinus rhythm with frequent PVCs, possible anterior NE probably old, inferior NE probably old. >> per my personal review no significant ST depressions or elevations. - EKG, repeat (1): When compared to EKG done earlier same day, left axis deviation now present, PVCs no longer present, mi findings present. >> per my personal review no significant ST elevations or depressions. - CXR: No acute cardiopulmonary abnormalities - Troponin: <0.012 x2, 6 hour ordered - ASA 324 given in the ED, continue as 81 daily - SL nitro PRN - cardiology consulted, awaiting recs - started on heparin gtt - check lipid panel and BNP - no previous stress test or cardiac cath on file per chart review >> stress test ordered, NPO at midnight - telemetry monitoring (2) Hyperlipidemia: Qualifiers: Hyperlipidemia type: unspecified Qualified Code(s): E78.5 - Hyperlipidemia, unspecified Code(s): E78.5 - Hyperlipidemia, unspecified Status: Chronic Assessment and Plan: - history of hyperlipidemia, not currently on a statin - checking lipid panel (3) Hypertension: Qualifiers: Hypertension type: primary hypertension Qualified Code(s): I10 - Essential (primary) hypertension Code(s): I10 - Essential (primary) hypertension Status: Chronic Assessment and Plan: - chronic, currently 146/94, stable - continue home medications: Lisinopril-hydrochlorothiazide - monitor Plan Glucose noted to be elevated upon admission at 178. Checking A1C, states she was recently told she is prediabetic but has no history of diabetes. Diet: Heart healthy, NPO midnight GI Prophylaxis: N/a DVT Prophylaxis: Lovenox IV fluids: None Lines/Tubes: Peripheral IV Code Status: Full code Quality VTE Prophylaxis VTE prophylaxis: pharmacologic ordered Hospitalist MIPS Advance Care Plan I have confirmed that the patient's Advanced Care Plan is present, code status is documented, or surrogate decision maker is listed in patient medical record.: Yes Medication Reconciliation I have utilized all available resources to obtain, update and review the patients current medications (includes all prescriptions, OTC, herbals, cannabis, and nutritional supplements).: Yes
[2025-06-25 17:54] LABS: Troponin I < 0.012 ng/mL (0.000-0.034)
--- NOTE | 2025-06-25 19:38 | ECG_ITS ---
Test Date: 2025-06-25 19:50:05 Measurements Intervals [place] Rate: 68 P: 49 CT: 191 QRS: -37 QRSD: 93 T: 12 QT: 404 QTc: 430 Interpretive Statements SINUS RHYTHM PATTERN CONSISTENT WITH PULMONARY DISEASE INFERIOR MYOCARDIAL INFARCTION, PROBABLY OLD Electronically Signed On 06-25-2025 20:53:20 CDT by Hao Esposito D.O
[2025-06-25 19:58] LABS: Cholesterol 215 mg/dL (0-200); HDL Direct 42 mg/dL; Triglycerides 148 mg/dL (<150)
[2025-06-25 20:08] LABS: NT Pro B Type Natriuretic Pept 169 pg/mL (19.9-100); Troponin I < 0.012 ng/mL (0.000-0.034)
[2025-06-26] VITALS (15 sets, daily range): BP systolic 105–147; BP diastolic 52–77; PULSE 61–85; RESP 14–20; TEMP 36.4–36.8; O2SAT 94–95
--- NOTE | 2025-06-26 | ECHO_ITS ---
Patient Info Name: Kiara Garcia Age: 75 years : 1950 Gender: Female Ht: 63 in Wt: 228 lbs BSA: 2.20 m2 HR: 71 bpm BP: 145 / 77 mmHg Heart Rhythm: Sinus Rhythm Technical Quality: Fair Exam Date: 06/26/2025 3:42 PM Patient Status: I Admit Date: 06/25/2025 Exam Type: CA echo dop color flow w con Complete two-dimensional, color flow and Doppler transthoracic echocardiogram is performed with contrast to opacify the left ventricle and to improve the deliniation of the left ventricle endocardial borders. Staff Referring Physician: Kuldip Hyatt MD Truck Driver Instructor: Deanna Delatorre Attending Provider: Han Dolan Contrast/Agitated Saline Contrast/Ag. Saline: Definity Amount: 2.00 ml Administered By: Deanna Delatorre Existing IV Access: Yes IV Access Condition: patent with no signs of infiltration Summary 1. Left ventricular systolic function is hyperdynamic, estimated at >70. 2. The left ventricular diastolic function is grade I diastolic dysfunction. 3. There is mild aortic valve calcification. 4. There is mild tricuspid valve regurgitation. 5. Mild pulmonary hypertension, estimated pulmonary arterial systolic pressure is 43 mmHg. Left Ventricle Left ventricular chamber dimension is normal. Left ventricular systolic function is hyperdynamic, estimated at >70. There is no increased left ventricular wall thickness. Left ventricular septal wall motion is normal. The left ventricular diastolic function is grade I diastolic dysfunction. Right Ventricle Right ventricular chamber dimension is normal. Right ventricular systolic function is normal. Left Atria Left atrial chamber dimension is normal. Right Atria Right atrial chamber dimension is normal. Aortic Valve The aortic valve is trileaflet. There is no aortic valve sclerosis. There is no aortic valve stenosis. There is no aortic valve regurgitation. There is mild aortic valve calcification. Pulmonic Valve The pulmonic valve is normal. There is no pulmonic valve stenosis. There is no pulmonic regurgitation. Mitral Valve The mitral valve has normal leaflets. There is no mitral valve stenosis. There is no mitral valve regurgitation. Tricuspid Valve The tricuspid valve leaflets are normal. There is no significant tricuspid valve stenosis. There is mild tricuspid valve regurgitation. Mild pulmonary hypertension, estimated pulmonary arterial systolic pressure is 43 mmHg. Pericardium/Pleural The pericardium appears normal. There is no pericardial effusion. Inferior Vena Cava Normal inferior vena cava with >50% collapse upon inspiration consistent with normal right atrial pressure, 5 mmHg. Aorta The aortic root size at the sinus of Valsalva is normal. The prox ascending aorta size is normal. Left Ventricular Outflow Tract Name Value Normal LVOT 2D LVOT Diameter 2.0 cm LVOT Doppler LVOT Peak Velocity 114 cm/s LVOT Peak Gradient 5 mmHg LVOT Mean Gradient 3 mmHg LVOT VTI 20 cm LVOT VTI/AV VTI Ratio 0.7 LVOT Stroke Volume 67 ml LVOT CO 4.1 l/min LVOT CI 1.9 l/min/m2 Pulmonic Valve Name Value Normal RVOT Doppler RVOT Peak Velocity 57 cm/s RVOT Peak Gradient 1 mmHg PV Doppler PV Peak Velocity 91 cm/s PV Peak Gradient 3 mmHg Mitral Valve Name Value Normal MV Diastolic Function MV E Peak Velocity 54 cm/s MV A Peak Velocity 92 cm/s MV E/A 0.6 MV Decel Time (PW) 305 ms MV Annular TDI MV E/e' (Septal) 9.3 MV E/e' (Lateral) 8.6 MV E/e' (Average) 8.9 Tricuspid Valve Name Value Normal TV Regurgitation Doppler TR Peak Velocity 307 cm/s TR Peak Gradient 38 mmHg Estimated PAP/RSVP RA Pressure 5 mmHg <=5 PA Systolic Pressure 43 mmHg <36 RV Systolic Pressure 43 mmHg <36 TV Annular TDI TV Lateral Shauna s' Velocity 10.9 cm/s >=9.5 Aorta Name Value Normal Ascending Aorta Ao Root Diameter (MM) 3.2 cm Ao Root Diam Index (MM) 1.4 cm/m2 Aortic Valve Name Value Normal AV Doppler AV Peak Velocity 160 cm/s AV Peak Gradient 10 mmHg AV Mean Gradient 6 mmHg AV VTI 31 cm AV Area (Cont Eq VTI) 2.2 cm2 >=3.0 AV Area (Cont Eq Luc) 2.3 cm2 AV DI (Luc) 0.71 AV Regurgitation 2D LVOT Area 3.3 cm2 Ventricles Name Value Normal LV Dimensions 2D/MM IVS Diastolic Thickness (2D) 1.0 cm 0.6-1.0 LVID Diastole (2D) 5.0 cm 3.8-5.2 LVIW Diastolic Thickness (2D) 1.0 cm 0.6-0.9 LVID Systole (2D) 3.1 cm 2.2-3.5 LVOT Diameter 2.0 cm LV Mass (2D Cubed) 179.91 g 67.00-162.00 LV Mass Index (2D Cubed) 82 g/m2 43-95 Relative Wall Thickness (2D) 0.39 <=0.42 LV Fractional Shortening/Ejection Fraction 2D/MM LV Fractional Shortening (2D) 38 % 27-45 LV EF (2D Teichholz) 68 % LV Diastolic Volume (4C MOD) 85 ml LV EF (4C MOD) 75 % LV Diastolic Volume (2C MOD) 48 ml LV EF (2C MOD) 66 % LV Diastolic Volume (BP MOD) 67 ml 46-106 LV Diastolic Volume Index (BP MOD) 30 ml/m2 29-61 LV Systolic Volume (BP MOD) 19 ml 14-42 LV Systolic Volume Index (BP MOD) 9 ml/m2 8-24 LV EF (BP MOD) 72 % 54-74 LV Diastolic Length (4C) 7.6 cm LV Systolic Length (4C) 5.2 cm LV Stroke Volume (4C MOD) 64 ml Atria Name Value Normal LA Dimensions LA Dimension (MM) 4.7 cm 2.7-3.8 LA Volume (4C A-L) 42 ml LA Volume (BP A-L) 50 ml RA Dimensions RA Area (4C) 16.1 cm2 <=18.0 Report Signatures
[2025-06-26 04:40] LABS: Hematocrit 40.9 % (37.0-47.0); Hemoglobin 14.1 g/dL (12.0-15.0); Immature Granulocyte Percent A 0.7 % (0-0.5); Lymphocytes Absolute Auto 2.04 K/mm3 (0.9-3.2); Mean Corpuscular HGB Conc 34.5 g/dl (32-36); Mean Corpuscular Hemoglobin 29.8 pg (26-34); Mean Corpuscular Volume 86.5 fl (80-100); Nucleated Red Blood Cells Absolute Auto 0.000 K/mm3 (0.0-0.012); Nucleated Red Blood Cells Perc 0.0 % (0.0-0.2); Platelet Count Result 237 k/mm3 (150-375); Red Blood Count 4.73 M/mm3 (4.2-5.4); White Blood Count 7.6 K/mm3 (4.5-10.0)
[2025-06-26 05:17] LABS: Hemoglobin A1C 6.4 % (<5.7)
[2025-06-26 05:18] LABS: Alanine Aminotransferase 22 U/L (6-35); Albumin Level 3.6 g/dL (3.5-5.1); Alkaline Phosphatase 49 U/L (38-126); Anion Gap 8 mmol/L (4-12); Aspartate Amino Transferase 25 U/L (14-36); Bilirubin,Total 0.6 mg/dL (0.2-1.3); Blood Urea Nitrogen 11 mg/dL (7-17); Calcium 8.8 mg/dL (8.4-10.2); Carbon Dioxide 26 mmol/L (22-30); Chloride 99 mmol/L (98-107); Estimated CRCL calculation 59 ml/min; Estimated Glomerular Filt Rate > 60; Glucose 109 mg/dL (65-110); Potassium 3.9 mmol/L (3.4-5.0); Sodium 133 mmol/L (137-145); Total Protein 6.5 g/dL (6.3-8.2)
--- NOTE | 2025-06-26 08:52 | PM.CNCAR ---
Assessment and Plan Assessment and plan (1) Chest pain: Qualifiers: Chest pain type: unspecified Qualified Code(s): R07.9 - Chest pain, unspecified Code(s): R07.9 - Chest pain, unspecified Status: Acute Assessment and Plan: She has typical chest pain occurring with exertion, associated with shortness of breath, and improving with rest. She does have risk factors for coronary artery disease including history of smoking, hypertension, hyperlipidemia. A stress test has been ordered and will be reviewed. Further recommendations based on the results of that study. Will also order an echocardiogram. (2) Hyperlipidemia: Qualifiers: Hyperlipidemia type: unspecified Qualified Code(s): E78.5 - Hyperlipidemia, unspecified Code(s): E78.5 - Hyperlipidemia, unspecified Status: Chronic Assessment and Plan: Apparently a new diagnosis. Would obtain a fasting lipid to determine if statin therapy is indicated. Of course, if she has evidence of coronary artery disease by her nuclear scan, would initiate statin. (3) Hypertension: Qualifiers: Hypertension type: primary hypertension Qualified Code(s): I10 - Essential (primary) hypertension Code(s): I10 - Essential (primary) hypertension Status: Chronic Assessment and Plan: Blood pressure at goal. (4) Shortness of breath: Code(s): R06.02 - Shortness of breath Status: Acute Assessment and Plan: Check an echocardiogram. She does not have any evidence of volume overload on exam. She does have a history of smoking and chronic exposure to secondhand smoke and her childhood. Possible pulmonary etiology. Will follow up on echo results. History of Present Illness History of Present Illness Consult date/time: 06/26/25 08:52 Requesting physician: Yolande Jackson APRN Consult reason: chest pain Reason For Visit: Chest Pain Narrative: Kiara Garcia is a 75 year old female with hypertension and hyperlipidemia. This is a patient who presents to the hospital with a chief complaint of chest pain. Cardiology is consulted for our opinion and advice regarding her chest pain. Patient reports new onset of exertional dyspnea starting about 3 months ago and becoming progressively worse. On Thursday, she had an episode of palpitations, shortness of breath, and chest tightness when she exerting herself doing housework. The symptoms subsided with no intervention. She had another occurrence of shortness of breath and chest discomfort yesterday at rest. Her daughter brought her to the hospital at that time. She states that her symptoms subsided on her way to the hospital and she has not had a recurrence of any symptoms. Review of Systems Review of Systems: All systems reviewed & are unremarkable except as noted in HPI and below PMFSH Past Medical History Medical History (Updated 06/26/25 @ 10:27 by THAIS Penaloza) Hyperlipidemia Screening mammogram, encounter for Encounter for special screening examination for neoplasm of cervix Hypertension Depression Surgical History Surgical History History of knee surgery (~2006) rt knee surgery History of cholecystectomy (~2012) Family History Family History Father Hypertension Diabetes mellitus Heart disease Mother Hypertension Family history of chronic obstructive pulmonary disease Heart disease Sibling Family history of malignant neoplasm of breast in first degree relative sister Diabetes mellitus sister Hypertension sister Social History Social History Smoking status: Never smoker Second hand tobacco smoke exposure: Yes (as child) Alcohol intake: never Drinks per week: 7 Substance use: never Substance use type: does not use Do You Feel Safe in your Home?: Yes Lack of Transportation: No Lack of Food: Never True Current Housing: I Have Housing Concerned About Future Housing: No Difficulty Paying Gas/Electric Bills: No Difficulty Paying for Meds: No Currently Unemployed: No Education: Master's Degree or Higher Difficulty w/ Childcare or Family Care: No Living arrangements: other Additional living arrangements comments: Occupation/Education: retired Gender identity (if verbalized by the patient): Female Sexual Orientation (if Verbalized by the Patient): Straight or Heterosexual Spiritual care concerns: No Meds Home Medications and Allergies Home Medications ?Medication ?Instructions ?Recorded ?Confirmed ?Type cholecalciferol (vitamin D3) 25 25 mcg PO DAILY 03/20/22 06/25/25 History mcg (1,000 unit) capsule escitalopram oxalate 10 mg tablet 10 mg PO DAILY 03/20/22 06/25/25 History folic acid 800 mcg tablet 0.8 mg PO DAILY 03/20/22 06/25/25 History multivitamin 1 tablet PO DAILY 03/20/22 06/25/25 History estradiol 0.01% (0.1 mg/gram) 1 g vaginal 3XW #42.5 grams 02/28/25 06/25/25 Rx vaginal cream (Estrace) lisinopril 20 1 tablet PO DAILY 06/25/25 06/25/25 History mg-hydrochlorothiazide 12.5 mg tablet Allergies Allergy/AdvReac Type Severity Reaction Status Date / Time No Known Allergies Allergy Mild Verified 04/04/25 09:26 Vital Signs Vital Signs - 24 hr 06/25/25 14:06 06/25/25 14:21 06/25/25 15:04 Temperature 36.6 C Pulse Rate 57 L 81 Respiratory Rate 16 20 Blood Pressure 195/102 H Pulse Oximetry 98 97 92 Oxygen Delivery Room Air 06/25/25 15:15 06/25/25 15:31 06/25/25 15:32 Temperature Pulse Rate 86 82 89 Respiratory Rate 24 H 17 20 Blood Pressure 138/75 Pulse Oximetry 93 91 96 Oxygen Delivery 06/25/25 17:08 06/25/25 17:46 06/25/25 20:00 Temperature 36.8 C 36.8 C Pulse Rate 69 76 68 Respiratory Rate 13 20 14 Blood Pressure 146/94 H 117/74 Pulse Oximetry 98 93 95 Oxygen Delivery 06/25/25 20:00 06/25/25 22:00 06/25/25 22:24 Temperature Pulse Rate 73 76 Respiratory Rate Blood Pressure Pulse Oximetry Oxygen Delivery Autopap 06/26/25 00:00 06/26/25 00:00 06/26/25 02:00 Temperature 36.7 C Pulse Rate 61 62 72 Respiratory Rate 14 Blood Pressure 136/72 Pulse Oximetry 95 Oxygen Delivery 06/26/25 04:00 06/26/25 04:00 06/26/25 06:00 Temperature 36.8 C Pulse Rate 62 66 64 Respiratory Rate 14 Blood Pressure 107/61 Pulse Oximetry 95 Oxygen Delivery 06/26/25 07:47 Temperature 36.6 C Pulse Rate 62 Respiratory Rate 18 Blood Pressure 118/65 Pulse Oximetry 95 Oxygen Delivery Exam Const: General: comfortable, no acute distress, alert and awake Orientation/consciousness: patient oriented x3 HENMT: Head: normal to inspection Eyes: General: appearance normal, both eyes and all related structures Pupils: Equal, round and reactive pupils present Neck: Neck: normal visual inspection, supple and no JVD Carotids: normal carotid upstroke Resp: Effort & Inspection: normal respiratory effort Auscultation: clear to auscultation bilaterally Cardio: Rate: regular rate Rhythm: regular rhythm Heart sounds: S1 normal heart sound present, S2 normal heart sound present and no murmurs GI: Auscultation: normal bowel sounds Skin: General skin exam: normal color Neuro: General: patient oriented x3 Cranial nerves: Yes Equal, round and reactive pupils present Extrem: General: normal to inspection Psych: Appearance: grossly normal Mental Status: mental status grossly normal Results Labs and Meds 06/26/25 04:16 06/26/25 04:16 Lab results: Cardiac Enzymes 06/25/25 06/25/25 06/25/25 Range/Units 14:40 17:21 19:28 AST 36 (14-36) U/L Troponin I < 0.012 < 0.012 < 0.012 (0.000-0.034) ng/mL 06/26/25 Range/Units 04:16 AST 25 (14-36) U/L Troponin I (0.000-0.034) ng/mL Coagulation 06/25/25 Range/Units 14:40 PT 13.0 (11.1-14.7) Seconds APTT 29.0 (22.3-36.8) Seconds Lipids 06/25/25 Range/Units 19:28 Triglycerides 148 (<150) mg/dL Cholesterol 215 H (0-200) mg/dL CBC 06/25/25 06/26/25 Range/Units 14:40 04:16 WBC 9.5 7.6 (4.5-10.0) K/mm3 RBC 4.95 4.73 (4.2-5.4) M/mm3 Hgb 14.6 14.1 (12.0-15.0) g/dL Hct 42.8 40.9 (37.0-47.0) % Plt Count 257 237 (150-375) k/mm3 Lymph # (Auto) 2.04 2.04 (0.9-3.2) K/mm3 [place] # (Auto) 0.5 0.5 (0.1-0.6) K/mm3 Eos # (Auto) 0.4 H 0.4 H (0-0.3) K/mm3 Baso # (Auto) 0.1 0.1 (0.0-0.1) K/mm3 Comprehensive Metabolic Panel 06/25/25 06/26/25 Range/Units 14:40 04:16 Sodium 127 L 133 L (137-145) mmol/L Potassium 4.0 3.9 (3.4-5.0) mmol/L Chloride 94 L 99 (98-107) mmol/L Carbon Dioxide 25 26 (22-30) mmol/L BUN 11 11 (7-17) mg/dL Creatinine 0.85 0.85 (0.7-1.0) mg/dL Glucose 178 H 109 (65-110) mg/dL Calcium 8.9 8.8 (8.4-10.2) mg/dL AST 36 25 (14-36) U/L ALT 25 22 (6-35) U/L Alkaline Phosphatase 50 49 (38-126) U/L Total Protein 7.3 6.5 (6.3-8.2) g/dL Albumin 4.1 3.6 (3.5-5.1) g/dL Intake and Output 06/25/25 06/26/25 06/26/25 23:59 07:59 15:59 Intake Total 120 Balance 120 Intake: Oral 120 Other: # Unmeasured Voids 1 Patient Weight 06/26/25 23:59 Weight 103.7 kg
[2025-06-26] MEDS: ASPIRIN 81 MG ENTERIC TABLET PO (09:46)
[2025-06-26] MEDS: ESCITALOPRAM OXALATE 10 MG TABLET PO (09:46)
[2025-06-26] MEDS: FOLIC ACID 0.4 MG TABLET 0.8 MG PO (09:46)
[2025-06-26] MEDS: MULTIVITAMINS THERAPEUTIC TAB (*BKC) 1 TABLET PO (09:47)
[2025-06-26] MEDS: CHOLECALCIFEROL (VITAMIN D3) 25 MCG (1,000 UNITS) TABLET PO (09:47)
[2025-06-26] MEDS: PERFLUTREN LIPID MICROSPHERES 1.5 ML VIAL DILUTED TO 10 ML TOTAL VOLUME IV PUSH (16:00)
--- NOTE | 2025-06-26 16:30 | EST_ITS ---
Patient Info Name: Kiara Garcia Age: 75 years : 1950 Gender: Female Ht: 62 in Wt: 238 lbs BSA: 2.24 m2 HR: 68 bpm BP: 120 / 82 mmHg Exam Date: 06/26/2025 4:30 PM Patient Status: I Admit Date: 06/25/2025 Exam Type: CA stress jean-paul w NM A regadenoson stress test was performed. Staff Referring Physician: Kuldip Hyatt MD Attending Provider: Han Dolan Exercise Technologist: Julianne Jaimes Exercise Physician: Gaurav Kendrick DO Summary 1. 1. Negative lexiscan stress test for ischemic ST changes by ECG criteria. 2. 2. Stable hemodynamics throughout the test. 3. 3. Nuclear scan to follow and will be reported separately. Please correlate with it. 4. 4. Patient informed of the above results. Protocol: Lexiscan Stress ECG Details Stage: REST Duration (min): 0 min : 23 sec HR (bpm): 69 SBP (mmHg): --- DBP (mmHg): --- Stage: REST Duration (min): 4 min : 42 sec HR (bpm): 70 SBP (mmHg): 120 DBP (mmHg): 82 Stage: STAGE 1 Duration (min): 1 min : 0 sec HR (bpm): 85 SBP (mmHg): 120 DBP (mmHg): 82 Stage: RECOVERY Duration (min): 1 min : 0 sec HR (bpm): 94 SBP (mmHg): 139 DBP (mmHg): 87 Stage: RECOVERY Duration (min): 2 min : 0 sec HR (bpm): 86 SBP (mmHg): 139 DBP (mmHg): 87 Stage: RECOVERY Duration (min): 3 min : 0 sec HR (bpm): 83 SBP (mmHg): 134 DBP (mmHg): 82 Stage: RECOVERY Duration (min): 3 min : 2 sec HR (bpm): 83 SBP (mmHg): 134 DBP (mmHg): 82 Rest HR: 70 bpm Peak HR: 103 bpm Rest Sys BP: 120 mmHg Peak Sys BP: 139 mmHg Max Pred HR: 147 bpm % Max Pred HR: 70 % Target HR: 125 bpm Max RPP: 14,317 bpm*mmHg Termination Reason: Completed protocol Cardiac Symptoms: Shortness of breath Total Time: 1 min : 0 sec Rest Haile BP: 82 mmHg Peak Haile BP: 87 mmHg Total Dose: 0.4 mg Resting ECG Sinus rhythm. Stress ECG No ST changes. Arrhythmias None. Report Signatures
--- NOTE | 2025-06-26 16:30 | IVDEFINITY ---
Prior to administration of IV Definity the patient was educated on the risks and benefits of the imaging enhancing agent including potential adverse side effects. The patient verbalized understanding. Allergies were verified. No exclusion criteria were identified and at least one of the following inclusion criteria were met: 1) physician request, 2) patient technically difficult to image (per the [place] [employer]chocardi[employer] guidelines of two or more segments not discernable within the apical view), or 3) questionable left ventricular function. ?
--- NOTE | 2025-06-26 16:31 | PC.NURSE ---
On 06/26/25, the student, Angelique Alcala, provided care and completed [facility] documentation on this patient. I have reviewed the student's documentation and agree with the findings.Ellen, MSN, RN
--- NOTE | 2025-06-26 17:27 | P.PNIM_ITS ---
Progress Note: A&P Assessment and Plan (1) Chest pain: Qualifiers: Chest pain type: unspecified Qualified Code(s): R07.9 - Chest pain, unspecified Code(s): R07.9 - Chest pain, unspecified Status: Acute Assessment and Plan: Patient has been experiencing exertional shortness of breath for the past 2 months without weight gain or peripheral edema. Shortness of breath would be alleviated with rest or reclining. However now shortness of breath occurred at rest and was accompanied by chest tightness and bilateral upper extremity tingling. Troponins have thus far been negative and no concerning changes on EKG. - EKG, initial: Sinus rhythm with frequent PVCs, possible anterior UT probably old, inferior UT probably old. >> per my personal review no significant ST depressions or elevations. - EKG, repeat (1): When compared to EKG done earlier same day, left axis deviation now present, PVCs no longer present, mi findings present. >> per my personal review no significant ST elevations or depressions. - CXR: No acute cardiopulmonary abnormalities - Troponin: <0.012 x2, 6 hour ordered - ASA 324 given in the ED, continue as 81 daily - SL nitro PRN - cardiology consulted, awaiting recs - started on heparin gtt - check lipid panel and BNP - no previous stress test or cardiac cath on file per chart review >> stress test ordered, NPO at midnight - telemetry monitoring -stress test is negative -echo pending to discharge (2) Hyperlipidemia: Qualifiers: Hyperlipidemia type: unspecified Qualified Code(s): E78.5 - Hyperlipidemia, unspecified Code(s): E78.5 - Hyperlipidemia, unspecified Status: Chronic Assessment and Plan: - history of hyperlipidemia, not currently on a statin - checking lipid panel (3) Hypertension: Qualifiers: Hypertension type: primary hypertension Qualified Code(s): I10 - Essential (primary) hypertension Code(s): I10 - Essential (primary) hypertension Status: Chronic Assessment and Plan: - chronic, currently 146/94, stable - continue home medications: Lisinopril-hydrochlorothiazide - monitor Plan Pending echo for discharge Time Spent With Patient Time: 35 minutes Subjective Date/time seen: 06/26/25 17:27 Interval history: Chest pain-free. She is back from stress test. Stress test is negative Exam Narrative: APPEARANCE: Obese and pleasant EYES: EOMI HEENT: Normocephalic, atraumatic, OMM RESPIRATORY: No respiratory distress Clear to auscultation bilaterally with no rhonchi wheezing or rales. CARDIOVASCULAR: RRR, S1 and S2 without murmurs rubs or gallops. ABDOMINAL: Soft, nontender, nondistended, no rebound or guarding MUSCULOSKELETAl: No issues NEURO: Awake and alert. Following commands, speech normal, no focal deficits SKIN:: Warm, dry. No rashes lesions or abrasions PSYCHIATRIC: Normal affect/mood, Objective Data Vital Signs Vital Signs: Vital Signs - 24 hr 06/25/25 17:46 06/25/25 20:00 06/25/25 20:00 Temperature 36.8 C 36.8 C Pulse Rate 76 68 73 Respiratory Rate 20 14 Blood Pressure 146/94 H 117/74 Pulse Oximetry 93 95 Oxygen Delivery 06/25/25 22:00 06/25/25 22:24 06/26/25 00:00 Temperature 36.7 C Pulse Rate 76 61 Respiratory Rate 14 Blood Pressure 136/72 Pulse Oximetry 95 Oxygen Delivery Autopap 06/26/25 00:00 06/26/25 02:00 06/26/25 04:00 Temperature Pulse Rate 62 72 62 Respiratory Rate Blood Pressure Pulse Oximetry Oxygen Delivery 06/26/25 04:00 06/26/25 06:00 06/26/25 07:47 Temperature 36.8 C 36.6 C Pulse Rate 66 64 62 Respiratory Rate 14 18 Blood Pressure 107/61 118/65 Pulse Oximetry 95 95 Oxygen Delivery 06/26/25 08:00 06/26/25 08:00 06/26/25 12:00 Temperature Pulse Rate 62 64 81 Respiratory Rate 18 Blood Pressure Pulse Oximetry 95 Oxygen Delivery Room Air 06/26/25 12:00 06/26/25 12:43 06/26/25 14:00 Temperature 36.4 C Pulse Rate 71 71 67 Respiratory Rate 17 17 Blood Pressure 145/77 H Pulse Oximetry 94 94 Oxygen Delivery Room Air 06/26/25 16:13 Temperature 36.7 C Pulse Rate 64 Respiratory Rate 18 Blood Pressure 147/68 H Pulse Oximetry 95 Oxygen Delivery Intake/Output Intake/Output: Intake & Output 06/23/25 06/24/25 06/25/25 06/26/25 23:59 23:59 23:59 23:59 Intake Total 460 Balance 460 Meds/Results Medications: Active Medications Generic Name Dose Route Start Last Admin Trade Name Freq PRN Reason Stop Dose Admin Acetaminophen 650 mg 06/25/25 16:28 Acetaminophen 325 Mg Tablet PO Q4H PRN Mild Pain (1-3) or Fever Hydrocodone Bitart/Acetaminophen 1 tab 06/25/25 16:28 Hydrocodone/Acetaminophen (*Crx) 5-325 Mg Tablet PO Q4H PRN Pain Rated 4-6 Aspirin 81 mg 06/26/25 09:00 06/26/25 09:46 Aspirin 81 Mg Enteric Tablet PO 81 mg QAM [facility] Administration Enoxaparin Sodium 40 mg 06/26/25 09:00 06/26/25 09:51 Enoxaparin 40 Mg/0.4 Ml Syringe SUB-Q Not Given DAILY [facility] Escitalopram Oxalate 10 mg 06/26/25 09:00 06/26/25 09:46 Escitalopram Oxalate 10 Mg Tablet PO 10 mg DAILY BILL Administration Folic Acid 0.8 mg 06/26/25 09:00 06/26/25 09:46 Folic Acid 0.4 Mg Tablet PO 0.8 mg DAILY [facility] Administration Hydrochlorothiazide 12.5 mg 06/26/25 09:00 06/26/25 09:46 Hydrochlorothiazide 12.5 Mg Capsule PO 12.5 mg QAM [facility] Administration Lisinopril 20 mg 06/26/25 09:00 06/26/25 09:47 Lisinopril 20 Mg Tablet PO 20 mg QAM [facility] Administration Multivitamins Therapeutic 1 tablet 06/26/25 09:00 06/26/25 09:47 Multivitamins Therapeutic Tab (*Bkc) PO 1 tablet DAILY [facility] Administration Nitroglycerin 0.4 mg 06/25/25 16:28 Nitroglycerin Sl 0.4 Mg Tablet SUBLINGUAL Q5MIN PRN Chest Pain Ondansetron HCl 4 mg 06/25/25 16:28 Ondansetron Inj 4 Mg/2 Ml Vial IV PUSH Q4H PRN Nausea Vitamin D 25 mcg 06/26/25 09:00 06/26/25 09:47 Cholecalciferol (Vitamin D3) 25 Mcg (1,000 Units) Tablet PO 25 mcg DAILY BILL Administration Radiology Results: ITS Impressions Chest X-Ray 06/25/25 14:55 Impression: No acute cardiopulmonary abnormality. Lexiscan Stress Test 06/26/25 12:48 IMPRESSION: 1. Normal myocardial perfusion at rest and during stress. 2. Left ventricular ejection fraction measuring >70%. Labs Labs: Laboratory Results - last 24 hr 06/25/25 06/25/25 06/26/25 17:21 19:28 04:16 WBC 7.6 RBC 4.73 Hgb 14.1 Hct 40.9 MCV 86.5 MCH 29.8 MCHC 34.5 RDW 13.0 Plt Count 237 MPV 10.8 H Immature Gran % (Auto) 0.7 H Neut % (Auto) 59.0 Lymph % (Auto) 26.9 [place] % (Auto) 6.6 Eos % (Auto) 5.7 H Baso % (Auto) 1.1 Lymph # (Auto) 2.04 [place] # (Auto) 0.5 Eos # (Auto) 0.4 H Baso # (Auto) 0.1 Abs Immat Gran (auto) 0.05 H Absolute Neuts (auto) 4.5 Absolute Nucleated RBC 0.000 Nucleated RBC % 0.0 Sodium 133 L Potassium 3.9 Chloride 99 Carbon Dioxide 26 Anion Gap 8 BUN 11 Creatinine 0.85 Estim Creat Clear Calc 59 Estimated GFR > 60 Glucose 109 Hemoglobin A1c 6.4 H Calcium 8.8 Total Bilirubin 0.6 AST 25 ALT 22 Alkaline Phosphatase 49 Troponin I < 0.012 < 0.012 NT-Pro-B Natriuret Pep 169 H Total Protein 6.5 Albumin 3.6 Triglycerides 148 Cholesterol 215 H LDL Cholesterol Direct 113 HDL Direct 42 Quality VTE Prophylaxis VTE prophylaxis: pharmacologic ordered
[2025-06-27] VITALS (8 sets, daily range): BP systolic 117–127; BP diastolic 65–74; PULSE 59–86; RESP 12–20; TEMP 36.7–36.9; O2SAT 91–96
[2025-06-27] MEDS: FOLIC ACID 0.4 MG TABLET 0.8 MG PO (09:37)
[2025-06-27] MEDS: CHOLECALCIFEROL (VITAMIN D3) 25 MCG (1,000 UNITS) TABLET PO (09:37)
[2025-06-27] MEDS: ESCITALOPRAM OXALATE 10 MG TABLET PO (09:38)
[2025-06-27] MEDS: ASPIRIN 81 MG ENTERIC TABLET PO (09:38)
[2025-06-27] MEDS: MULTIVITAMINS THERAPEUTIC TAB (*BKC) 1 TABLET PO (09:38)
--- NOTE | 2025-06-27 13:01 | PM.CNCAR ---
Assessment and Plan Assessment and plan (1) Shortness of breath: Code(s): R06.02 - Shortness of breath Status: Acute (2) Hypertension: Qualifiers: Hypertension type: primary hypertension Qualified Code(s): I10 - Essential (primary) hypertension Code(s): I10 - Essential (primary) hypertension Status: Chronic (3) Hyperlipidemia: Qualifiers: Hyperlipidemia type: unspecified Qualified Code(s): E78.5 - Hyperlipidemia, unspecified Code(s): E78.5 - Hyperlipidemia, unspecified Status: Chronic Plan Assessment: 1. 75-year-old female with no previous history of cardiac problems or any history suggestive of myocardial infarction, angina now presents with tele marked dyspnea on exertion which is worsening and also experiences and at rest. No complaints of associated chest pain, palpitations or leg edema. Further workup with EKG chest x-ray was negative. ProBNP was 269. Cardiac troponin negative x2. Patient is morbidly obese and weighs 104 kg with BMI of 40.8. 2. History of hypertension. Blood pressure was elevated in the emergency room at 195/102 mm of mercury. Heart rate was 57 per minute blood. Blood pressure is now improved significantly with increased heart rate. 3. History of hyperlipidemia. Recommendations: (1) Morbidly obese patient now presents with marked dyspnea on exertion and worsening shortness of breath at rest. ProBNP is only mildly elevated with negative cardiac enzymes. Echocardiogram shows preserved systolic function and grade 1 diastolic dysfunction. No wall motion abnormalities noted. (2) Chest x-rays negative without any acute cardiopulmonary decompensation. (3) Can not rule out underlying coronary artery disease. Nuclear stress test performed yesterday was negative for any fixed or reversible defect and normal systolic function. (4) Current home medications reviewed. Patient is on lisinopril and hydrochlorothiazide daily. Will add metoprolol succinate 25 mg daily. (5) Pulmonary function test was recommended as an outpatient if needed. (6) All efforts to decreased weight may be beneficial including use of the newer weight reducing medications like Ozempic. Discussed with patient at the bedside. Okay to discharge patient home today. History of Present Illness History of Present Illness Consult date/time: 06/27/25 13:01 Requesting physician: Yolande Jackson APRN Reason For Visit: Chest Pain Narrative: Patient is a 75-year-old female admitted via emergency room on 06/25/2025 with complaints of chest pain. Patient has past medical history significant for hypertension and hyperlipidemia. No previous known history of myocardial infarction, angina or congestive heart failure. Patient came to the emergency room with complaints of exertional shortness of breath for last couple of months. This is getting worse even problem walking room to room. No associated wheezing, cough, palpitation or dizziness. Now the shortness of breath he is progressing even at rest. No complaints of chest pain pain. Admitting blood pressure in the emergency room was 195/102 mm of mercury heart rate was 57 per minute. Patient is afebrile with respirations at 16 and O2 saturation at 98%. Admitting laboratory data revealed WBC count at 9.5, hemoglobin 14.6 and platelets are normal. Sodium 127, potassium is 4.0, BUN is 11 and creatinine 0.55. Platelets at home. Admitting chest x-ray did not reveal any acute cardiopulmonary abnormalities were noted EKG on admission revealed normal sinus rhythm with heart rate of 96 per minute and frequent ventricular ectopic beats in the form of ventricular quadrigeminy. Admitting cardiac troponin was 0.2 012 and remained flat. Admitting proBNP was 169. Review of Systems Review of Systems: Fourteen point review of system was completed. Pertinent positive and negative findings per HPI. Head and neck is negative and atraumatic. No complaints of headache decreased hearing Constitutional negative for weight loss or weight gain, weakness or fever. Pulmonary negative for shortness of breath, cough or hemoptysis. Cardiovascular negative for CP chest pain. Positive for dyspnea on exertion and shortness of breath. Negative for palpitation, dizziness or syncope. Gastrointestinal negative for abdominal pain nausea vomiting or diarrhea. Needle vascular and negative for headache, dizziness, syncope or focal weakness. , skin joints were negative. Neurological is negative for any imbalance, syncope, dizziness, seizures. Patient moving all extremities. [facility] Past Medical History Medical History Hyperlipidemia Screening mammogram, encounter for Encounter for special screening examination for neoplasm of cervix Hypertension Depression Surgical History Surgical History History of knee surgery (~2006) rt knee surgery History of cholecystectomy (~2012) Family History Family History Father Hypertension Diabetes mellitus Heart disease Mother Hypertension Family history of chronic obstructive pulmonary disease Heart disease Sibling Family history of malignant neoplasm of breast in first degree relative sister Diabetes mellitus sister Hypertension sister Social History Social History Smoking status: Never smoker Second hand tobacco smoke exposure: Yes (as child) Alcohol intake: never Drinks per week: 7 Substance use: never Substance use type: does not use Do You Feel Safe in your Home?: Yes Lack of Transportation: No Lack of Food: Never True Current Housing: I Have Housing Concerned About Future Housing: No Difficulty Paying Gas/Electric Bills: No Difficulty Paying for Meds: No Currently Unemployed: No Education: Master's Degree or Higher Difficulty w/ Childcare or Family Care: No Living arrangements: other Additional living arrangements comments: Occupation/Education: retired Gender identity (if verbalized by the patient): Female Sexual Orientation (if Verbalized by the Patient): Straight or Heterosexual Spiritual care concerns: No Meds Home Medications and Allergies Home Medications ?Medication ?Instructions ?Recorded ?Confirmed ?Type cholecalciferol (vitamin D3) 25 25 mcg PO DAILY 03/20/22 06/25/25 History mcg (1,000 unit) capsule escitalopram oxalate 10 mg tablet 10 mg PO DAILY 03/20/22 06/25/25 History folic acid 800 mcg tablet 0.8 mg PO DAILY 03/20/22 06/25/25 History multivitamin 1 tablet PO DAILY 03/20/22 06/25/25 History estradiol 0.01% (0.1 mg/gram) 1 g vaginal 3XW #42.5 grams 02/28/25 06/25/25 Rx vaginal cream (Estrace) lisinopril 20 1 tablet PO DAILY 06/25/25 06/25/25 History mg-hydrochlorothiazide 12.5 mg tablet Allergies Allergy/AdvReac Type Severity Reaction Status Date / Time No Known Allergies Allergy Mild Verified 04/04/25 09:26 Vital Signs Vital Signs - 24 hr 06/26/25 14:00 06/26/25 16:00 06/26/25 16:00 Temperature Pulse Rate 67 64 64 Respiratory Rate 18 Blood Pressure Pulse Oximetry 95 Oxygen Delivery Room Air Fraction of Inspired Oxygen 06/26/25 16:13 06/26/25 18:00 06/26/25 20:00 Temperature 36.7 C 36.8 C Pulse Rate 64 73 70 Respiratory Rate 18 14 Blood Pressure 147/68 H 105/52 L Pulse Oximetry 95 94 Oxygen Delivery Fraction of Inspired Oxygen 06/26/25 20:00 06/26/25 20:00 06/26/25 21:03 Temperature Pulse Rate 67 85 Respiratory Rate 20 Blood Pressure Pulse Oximetry 95 Oxygen Delivery Room Air Room Air Fraction of Inspired Oxygen 21 06/26/25 22:00 06/27/25 00:00 06/27/25 00:00 Temperature 36.8 C Pulse Rate 84 84 Respiratory Rate 16 Blood Pressure 117/65 Pulse Oximetry 91 Oxygen Delivery Room Air Fraction of Inspired Oxygen 06/27/25 00:00 06/27/25 02:00 06/27/25 04:00 Temperature Pulse Rate 86 65 Respiratory Rate Blood Pressure Pulse Oximetry Oxygen Delivery Room Air Fraction of Inspired Oxygen 06/27/25 04:00 06/27/25 04:00 06/27/25 06:00 Temperature 36.8 C Pulse Rate 73 62 75 Respiratory Rate 14 Blood Pressure 127/66 Pulse Oximetry 94 Oxygen Delivery Fraction of Inspired Oxygen 06/27/25 08:00 06/27/25 08:00 06/27/25 12:00 Temperature 36.9 C 36.7 C Pulse Rate 63 63 63 Respiratory Rate 12 12 20 Blood Pressure 123/74 121/72 Pulse Oximetry 96 96 95 Oxygen Delivery Room Air Fraction of Inspired Oxygen Exam Narrative: Examination of the Wake alert female in no acute distress. Oriented x3 and atraumatic. Head and neck examination is unremarkable. Sclerae nonicteric. Neck is supple. There is no JVD or carotid bruit. Thyroid not enlarged. Lungs reveal clear to auscultation and percussion. Heart sounds reveal normal S1-S2. There is no significant murmurs S3 or S4 present Abdomen is soft and nontender. There is no hepatosplenomegaly bowel sounds present. Extremities revealed no pedal edema at this time. Distal pulses are fair bilaterally. Neurological examination is intact. Extremities reveal no pedal edema. Skin is intact without rash or bruises. Results Labs and Meds 06/26/25 04:16 06/26/25 04:16 Lab results: Intake and Output 06/26/25 06/27/25 06/27/25 23:59 07:59 15:59 Intake Total 740 50 240 Balance 740 50 240 Intake: Oral 740 50 240 Other: # Unmeasured Voids 2 1 Patient Weight 06/27/25 23:59 Weight 104.5 kg Imaging and Cardiology Echo: report reviewed and other (Echocardiogram reveals normal left ventricular size and systolic function with estimated ejection fraction more than 70%. No significant left ventricular hypertrophy or wall motion abnormalities. Trace early chambers are normal as well as IVC.) EKG results: image reviewed and other (EKG reveal normal sinus rhythm with either 68 per minute and no ischemic ST or T-wave changes. Cannot rule out old inferior wall myocardial infraction.)
--- NOTE | 2025-06-27 14:24 | P.DS_ITS ---
DS: Admitting Diagnosis Discharge Date 06/27/25 Admitting Diagnosis Chest Pain DS: Discharge Diagnosis Discharge Diagnosis (1) Chest pain: Qualifiers: Chest pain type: unspecified Qualified Code(s): R07.9 - Chest pain, unspecified Code(s): R07.9 - Chest pain, unspecified Status: Acute DS: Summary Hospital Course Hospital Course: Patient has been experiencing exertional shortness of breath for the past 2 months without weight gain or peripheral edema. Shortness of breath would be alleviated with rest or reclining. EKG no acute changes, CXR no acute changes cardiology consulted, Lexiscan adn ECHO were normal, no ischemic changes, ECHO showed EF 70% and grade I diastolic dysfunction. Patient is pain free today discussed with cardiology adn they are okay with discharge on metoprolol F/u with PCP in 3-5 days F/u cardiology as instructed Time Spent with Patient Time attestation: Total time spent providing and/or coordinating discharge services: Discharge Plan Discharge Attending physician on discharge: Jeannine Chen Consulting providers: Miguel Gallegos; Jeannine Chen Discharging Clinician: Jeannine Chen Anticipated Discharge Date/Time: 06/27/25 14:15 Patient Disposition: Home Activity: as tolerated Diet: as tolerated and heart healthy Patient Instructions: Antibiotic Form, Cardiac Stress Test (GEN) Patient Language: Salvadorean Stand Alone Forms: General Discharge Information Follow-up/Referrals: Miguel Gallegos MD [Physician, Cardiology] Referral Note: F/u with cardiology as instructed Sandhya,Ramiro Bearden MD [Primary Care Provider, Unknown] Referral Note: F/u with PCP in 3-5 days Discharge Medications: New metoprolol succinate [Toprol XL] 25 mg Tablet Extended Release 24 Hr 25 mg PO QAM 30 Days Qty: 30 0RF Continued multivitamin Tablet 1 tablet PO DAILY folic acid 800 mcg tablet 0.8 mg PO DAILY cholecalciferol (vitamin D3) 25 mcg (1,000 unit) capsule 25 mcg PO DAILY escitalopram oxalate 10 mg tablet 10 mg PO DAILY lisinopril-hydrochlorothiazide 20-12.5 mg tablet 1 tablet PO DAILY estradiol [Estrace] 0.01 % (0.1 mg/gram) cream 1 g vaginal 3XW Qty: 42.5 2RF Date of admission: 06/25/25 16:28 Primary Care Provider: Sandhya,Ramiro Bearden Admitting Provider: Han Dolan Attending physician on admission: Han Dolan Condition: Stable
== END 2025-06-27 16:09 | disposition home or self-care (01) ==
LOC: ANHED 16:48 → ANHIMU 20:38
PROVIDERS: Student in an Organized Health Care Education/Training Program; Admitting Provider General Practice; Emergency Provider Emergency Medicine; PCP Family Medicine; Visit Provider Internal Medicine
DX: R07.9 Chest pain, unspecified (principal); R06.02 Shortness of breath; I10 Essential (primary) hypertension; E78.5 Hyperlipidemia, unspecified; F32.A Depression, unspecified; Z82.49 Family history of ischemic heart disease and other diseases of the circulatory system; Z83.3 Family history of diabetes mellitus
CPT/HCPCS: 36415; 71046; 78452; 80053; 80061; 83036; 83690; 83880; 84484; 85025; 85610; 85730; 93005; 93017; 96374; 99285; A9270; A9502; C8929; G0378; J2785; Q9957